=== PATIENT | female | born 1960 | race African-American/Black ===

== ENCOUNTER 2017-01-30 18:23 | Inpatient (IN) | payer OTHER ==
[~2017-01-30] VITALS: Ht 167.6 cm; Wt 43.5 kg
[2017-01-30] MEDS ORDERED: 0.9 % SODIUM CHLORIDE 10 ML DISP.SYRIN. IV PRN (18:45)
[2017-01-30] MEDS ORDERED: IV NORMAL SALINE 1000ML BAG 1,000 ML IV SCH (18:45)
--- NOTE | 2017-01-30 18:52 | PHYS DOC ---
Past Medical History Additional Past Medical Histor: Alzheimer's dementia Past Surgical History: Hysterectomy Alcohol Use: None Drug Use: None Adult General Chief Complaint Chief Complaint: WEAKNESS/GENERALIZED HPI VIGNESH Is is a pleasant 57-year-old -[place] female with a history of advanced also has dementia who lives at home with her and her [id number]. She normally can ambulate with assistance and follow simple instructions at home she does help with transferring from bed to chair she is able to feed herself at times. Family noted this morning the patient was refusing to help walk or transfer from her bed. They noticed increasing weakness or lower extremity's bilaterally and her refusal to walk. He denies any fevers at of the document, no change in bowel habits, no change in eating habits, no change in medications. They deny trauma or falls. She is not had any change in urinary output. Patient typically does not any complaints but has difficulty following most instructions. Family is primary concern is his increased weakness may be associated with a stroke. It is unclear when the symptoms began as she woke this morning with the symptoms. She clearly is not a candidate for TPA given the timetable Dr. Zan Martin is her PCP Review of Systems Review of Systems Patient was able to provide no history or review of systems review of systems provided below is from family. Constitutional: Denies fever or chills [] Eyes: Denies change in visual acuity, redness, or eye pain [] HENT: Denies nasal congestion or sore throat [] Respiratory: Denies cough or shortness of breath [] Cardiovascular: No additional information not addressed in HPI [] GI: Denies abdominal pain, nausea, vomiting, bloody stools or diarrhea [] : Denies dysuria or hematuria [] Musculoskeletal: Denies back pain or joint pain [] Integument: Denies rash or skin lesions [] Neurologic: Denies headache, patient is an increased weakness of the lower extremities with refusal walk. Endocrine: Denies polyuria or polydipsia [] Current Medications Current Medications Current Medications Medications (Trade) Dose Ordered Sig/Latasha Start Time Stop Time Status Last Admin Dose Admin Sodium Chloride (Normal Saline Flush) 10 ml QSHIFT PRN 01/30/17 18:45 01/30/17 19:30 10 ML Allergies Allergies Allergies Coded Allergies Type Severity Reaction Last Updated Verified No Known Drug Allergies 01/30/17 No Physical Exam Physical Exam This patient's vital signs reviewed by me patient noted to be mildly hypertensive. Constitutional: As patient is thin but well-nourished well cared for by the family she is actively leading to the right of the bed with active drooling. HENT: Normocephalic, atraumatic, bilateral external ears normal, oropharynx moist, no oral exudates, nose normal. [] Eyes: PERRLA, EOMI, conjunctiva normal, no discharge. [] Neck: Normal range of motion, no tenderness, supple, no stridor. [] Cardiovascular:Heart rate regular rhythm, no murmur [] Lungs & Thorax: Bilateral breath sounds clear to auscultation [] Abdomen: Bowel sounds normal, soft, no tenderness, no masses, no pulsatile masses. [] Skin: Warm, dry, no erythema, no rash. [] Back: No obvious signs of trauma Extremities: No tenderness, no cyanosis, no clubbing, ROM intact, no edema. [] Neurologic: Patient is awake and alert at baseline patient moves upper and lower extremity's with stimulation. Psychologic: Affect is blunted she will not communicate Current Patient Data Vital Signs Vital Signs Date Time Temp Pulse Resp B/P (MAP) Pulse Ox O2 Delivery O2 Flow Rate FiO2 01/30/17 18:40 97.9 60 16 143/67 (92) 98 Room Air 97.9 Lab Values Laboratory Tests Test 01/30/17 18:55 01/30/17 20:20 White Blood Count 10.9 x10^3/uL (4.0-11.0) Red Blood Count 3.89 x10^6/uL (3.50-5.40) Hemoglobin 11.5 g/dL (12.0-15.5) L Hematocrit 35.3 % (36.0-47.0) L Mean Corpuscular Volume 91 fL (79-100) Mean Corpuscular Hemoglobin 30 pg (25-35) Mean Corpuscular Hemoglobin Concent 33 g/dL (31-37) Red Cell Distribution Width 13.0 % (11.5-14.5) Platelet Count 187 x10^3/uL (140-400) Neutrophils (%) (Auto) 82 % (31-73) H Lymphocytes (%) (Auto) 7 % (24-48) L Monocytes (%) (Auto) 10 % (0-9) H Eosinophils (%) (Auto) 0 % (0-3) Basophils (%) (Auto) 0 % (0-3) Neutrophils # (Auto) 9.0 x10^3uL (1.8-7.7) H Lymphocytes # (Auto) 0.8 x10^3/uL (1.0-4.8) L Monocytes # (Auto) 1.1 x10^3/uL (0.0-1.1) Eosinophils # (Auto) 0.0 x10^3/uL (0.0-0.7) Basophils # (Auto) 0.0 x10^3/uL (0.0-0.2) Sodium Level 143 mmol/L (136-145) Potassium Level 3.8 mmol/L (3.5-5.1) Chloride Level 106 mmol/L (98-107) Carbon Dioxide Level 27 mmol/L (21-32) Anion Gap 10 (6-14) Blood Urea Nitrogen 16 mg/dL (7-20) Creatinine 0.9 mg/dL (0.6-1.0) Estimated GFR (Cockcroft-Gault) 77.8 Glucose Level 127 mg/dL (70-99) H Lactic Acid Level 1.6 mmol/L (0.4-2.0) Calcium Level 9.4 mg/dL (8.5-10.1) Magnesium Level 1.9 mg/dL (1.8-2.4) Total Bilirubin 0.9 mg/dL (0.2-1.0) Direct Bilirubin 0.2 mg/dL (0.0-0.2) Aspartate Amino Transferase (AST) 32 U/L (15-37) Alanine Aminotransferase (ALT) 27 U/L (14-59) Alkaline Phosphatase 44 U/L (46-116) L Creatine Kinase 608 U/L (26-192) H Creatine Kinase MB (Mass) 11.0 ng/mL (0.0-3.6) H Creatine Kinase MB Relative Index 1.8 % (0-4) Troponin I Quantitative < 0.017 ng/mL (0.000-0.055) SL-Wgc-W-Type Natriuretic Peptide 624 pg/mL (0-124) H Total Protein 7.7 g/dL (6.4-8.2) Albumin 3.5 g/dL (3.4-5.0) Lipase 89 U/L (73-393) Thyroid Stimulating Hormone (TSH) 1.638 uIU/mL (0.358-3.74) Urine Collection Type U cath Urine Color Kathy Urine Clarity Clear Urine pH 5.5 Urine Specific [place] >=1.030 Urine Protein Negative mg/dL (NEG-TRACE) Urine Glucose (UA) Negative mg/dL (NEG) Urine Ketones (Stick) Negative mg/dL (NEG) Urine Blood Negative (NEG) Urine Nitrite Negative (NEG) Urine Bilirubin Small (NEG) Urine Urobilinogen Dipstick 1.0 mg/dL (0.2 mg/dL) Urine Leukocyte Esterase Negative (NEG) Urine RBC Occ /HPF (0-2) Urine WBC Occ /HPF (0-4) Urine Bacteria 0 /HPF (0-FEW) Urine Mucus Marked /LPF Laboratory Tests 01/30/17 18:55 Laboratory Tests 01/30/17 18:55 EKG EKG [] Radiology/Procedures Radiology/Procedures [] IMAGING REPORT Signed PATIENT: KERLINE ZIMMERMAN ACCOUNT: [id number] : 1960 LOCATION: ER AGE: 57 SEX: F EXAM STATUS: REG ER ORD. PHYSICIAN: DEBORAH STERN MD REASON: altered mental status PROCEDURE: CT HEAD WO CONTRAST CT Head W/O Contrast: History: ams, no priors Comparison: none Axial images were obtained without contrast. There is marked diffuse atrophy. There is no mass effect, extraaxial fluid collections or hydrocephalus. There is no focal loss of brown-white matter distinction to suggest acute ischemia, i.e. stroke. Impression: Marked diffuse cerebral and cerebellar atrophy is advanced for the patient's age. Otherwise no acute findings. PQRS Compliance Statement: One or more of the following individualized dose reduction techniques were utilized for this examination: 1. Automated exposure control 2. Adjustment of the mA and/or kV according to patient size 3. Use of iterative reconstruction technique Electronically signed by: Jose Mg III, MD (01/30/2017 7:34 PM) [facility] DICTATED and SIGNED BY: JOSE MG III, MD DATE: 01/30/171922 CC: DEBORAH STERN MD; ZAN MARTIN MD ~ Impressions: CPK chest x-ray demonstrates normal inflated lungs with no infiltrates, no pleural effusion, no pneumothorax, Course & Med Decision Making Course & Med Decision Making Pertinent Labs and Imaging studies reviewed. (See chart for details) Patient presents with increased altered mental status as also missed patient. Which may just be an increase of alzhemiers dementia. But family is worried she might have suffered a stroke or some other catastrophe that is causing her altered mental status. Upon arrival to ensure the patient is not septic, from any pulmonary or urinary source. We will complete a CAT scan of her head EKG, troponin, CMP, BNP, CBC and urinalysis. Impression symptoms have not changed although her CMP is unremarkable. She has a mildly elevated CK but the MB and troponin are both negative. Patient is a mildly elevated BNP but no obvious signs of congestive heart failure on physical exam. Recent EKG is also unremarkable for any Acute coronary ischemia. CAT scan of her head completed and read by radiology and reviewed by me at approximately 8:10 PM demonstrates no acute infarct or cranial mass or lesion. I have expressed my concerns that there may be a urinary source of infection causing her increased weakness. We'll need to collect a catheter UA. [] Dragon Disclaimer Dragon Disclaimer This electronic medical record was generated, in whole or in part, using a voice recognition dictation system. Departure Departure Impression: Primary Impression: Generalized weakness Additional Impressions: Change in mental status Alzheimer's dementia Disposition: ADMITTED INPATIENT Admitting Physician: Neelima Cazares Condition: GUARDED Referrals: ZAN MARTIN MD (PCP) Problem Qualifiers DEBORAH STERN MD Jan 30, 2017 18:52
[2017-01-30 19:05] LABS: BASO % 0 % (0-3); EOS % 0 % (0-3); HEMATOCRIT 35.3 % (36.0-47.0); HEMOGLOBIN 11.5 g/dL (12.0-15.5); LYMPH # 0.8 x10^3/uL (1.0-4.8); LYMPH % 7 % (24-48); MEAN CORPUSCULAR HEMOGLOBIN 30 pg (25-35); MEAN CORPUSCULAR HGB CONC 33 g/dL (31-37); MEAN CORPUSCULAR VOLUME 91 fL (79-100); MONO % 10 % (0-9); NEUT % 82 % (31-73); PLATELET COUNT 187 x10^3/uL (140-400); RED BLOOD COUNT 3.89 x10^6/uL (3.50-5.40); WHITE BLOOD COUNT 10.9 x10^3/uL (4.0-11.0)
[2017-01-30 19:21] LABS: CALCIUM 9.4 mg/dL (8.5-10.1); CREATININE 0.9 mg/dL (0.6-1.0); GFR 77.8; POTASSIUM 3.8 mmol/L (3.5-5.1)
[2017-01-30 19:27] LABS: ALBUMIN 3.5 g/dL (3.4-5.0); DIRECT BILIRUBIN 0.2 mg/dL (0.0-0.2); MAGNESIUM 1.9 mg/dL (1.8-2.4); TOTAL BILIRUBIN 0.9 mg/dL (0.2-1.0); TOTAL PROTEIN 7.7 g/dL (6.4-8.2)
--- NOTE | 2017-01-30 19:37 | RAD ---
CT Head W/O Contrast: History: ams, no priors Comparison: none Axial images were obtained without contrast. There is marked diffuse atrophy. There is no mass effect, extraaxial fluid collections or hydrocephalus. There is no focal loss of brown-white matter distinction to suggest acute ischemia, i.e. stroke. Impression: Marked diffuse cerebral and cerebellar atrophy is advanced for the patient's age. Otherwise no acute findings. PQRS Compliance Statement: One or more of the following individualized dose reduction techniques were utilized for this examination: 1. Automated exposure control 2. Adjustment of the mA and/or kV according to patient size 3. Use of iterative reconstruction technique Electronically signed by: Sumit Spaulding III, MD (01/30/2017 7:34 PM) [facility]
[2017-01-30 20:31] LABS: BILIRUBIN,URINE SMALL (NEG); GLUCOSE,URINE NEGATIVE (NEG); NITRITE,URINE NEGATIVE (NEG); PH,URINE 5.5; PROTEIN,URINE NEGATIVE (NEG-TRACE)
[2017-01-30 20:35] LABS: BACTERIA,URINE 0 /HPF (0-FEW); RBC,URINE OCC /HPF (0-2); WBC,URINE OCC /HPF (0-4)
[2017-01-30] MEDS: IV NORMAL SALINE 1000ML BAG 1,000 ML IV SCH (21:15)
[2017-01-30] MEDS ORDERED: oxyCODONE IR 5 MG TABLET PO PRN (21:15)
[2017-01-30] MEDS ORDERED: MAGNESIUM HYDROXIDE 2,400 MG/30 ML ORAL.SUSP. PO PRN (21:15)
[2017-01-30] MEDS ORDERED: BISACODYL 10 MG SUPP.RECT. PR PRN (21:15)
[2017-01-30] MEDS ORDERED: ONDANSETRON PF 4 MG/2 ML VIAL. IV PRN (21:15)
[2017-01-30] MEDS ORDERED: IBUPROFEN 400 MG TABLET. PO PRN (21:15)
[2017-01-30] MEDS ORDERED: ACETAMINOPHEN 325 MG TABLET. PO PRN (21:15)
[2017-01-30] MEDS ORDERED: PROCHLORPERAZINE 10 MG/2 ML VIAL. IV PRN (21:15)
[2017-01-30] MEDS ORDERED: PROCHLORPERAZINE 25 MG SUPP.RECT. PR PRN (21:15)
[2017-01-30] MEDS ORDERED: MORPHINE SULFATE 2 MG/ML DISP.SYRIN. IV PRN (21:15)
[2017-01-30] MEDS ORDERED: KETOROLAC 15 MG/ML VIAL. IV PRN (21:15)
--- NOTE | 2017-01-30 21:25 | PDOC1 ---
History and Physical Date of Admission Date of Admission DATE: 01/30/17 TIME: 21:16 Identification/Chief Complaint Chief Complaint dec PO, not wanting to eat, get up, FTT sxs Problems: Source Source: Caregiver, Chart review History of Present Illness History of Present Illness 57 y.o AA female with already advanced dementia, dx with ALZHEIMERS dementia by a neurologist in 10 yrs ago and is on namenda, aricept, brought in by today for the above CC. (I have reviewed notes from this neurologist that the brought with him). There is always someone with patient to take care of her, at night the takes care of her after coming home from work, She does not really walk,, no bed sores, on regular chopped food they prepare and she picks it up for herself, . She mumbles mostly but can still recognize , PEr spouse worse today in mentation, drooling more and just refused to eat and get up which is a change from her baseline, I did discuss code status, and it is clear the says FULL Code and he is the DPOA. LAbs ok, CThead chronic vessel change, Admitted for mRI and possible placement, I did discuss SNU, seems a bit hesitant at first, but is willing to see her course and make appropriate decisions from there, Past Medical History Cardiovascular: HTN CENTRAL NERVOUS SYSTEM: Dementia Endocrine: Hypothyroidism Past Surgical History Past Surgical History: , Hysterectomy Family History Family History: Other (no dementia in family, reveiwed, neg) Social History Smoke: No ALCOHOL: none Drugs: None Current Problem List Problem List Problems Medical Problems: (1) Alzheimer's dementia Status: Acute (2) Change in mental status Status: Acute (3) Generalized weakness Status: Acute Problems: Current Medications Current Medications Current Medications Sodium Chloride 1,000 ml @ 1,000 mls/hr Q1H IV Last administered on 01/30/17 19:30; Start 01/30/17 at 18:45; Stop 01/30/17 at 19:44; Status DC Sodium Chloride (Normal Saline Flush) 10 ml QSHIFT PRN IV AFTER MEDS AND BLOOD DRAWS Last administered on 01/30/17 19:30; Start 01/30/17 at 18:45 Allergies Allergies: Coded Allergies: No Known Drug Allergies (Unverified , 01/30/17) ROS Review of System unobtainable - dementia Physical Exam General: No acute distress, Other (mumbles, seems to have shallow R NLF) HEENT: Atraumatic, PERRLA, EOMI Lungs: Clear to auscultation Heart: S1S2, no gallops Cardiovascular: S1 Breasts: Normal, Rt breast nml w/o mass, Lt breast nml w/o mass, Nipples normal Abdomen: Normal bowel sounds, Soft, No tenderness Male Genitals Exam: normal genitalia, normal prostate Rectal Exam: not examined PELVIC: Nml ext genitalia Extremities: Other (cant elevate both arms - thats her baseline per hsuband - mostly from dementia) Skin: No rashes, No breakdown, No significant lesion Vitals Vitals Vital Signs Date Time Temp Pulse Resp B/P (MAP) Pulse Ox O2 Delivery O2 Flow Rate FiO2 01/30/17 20:55 64 21 128/82 (97) 96 01/30/17 19:30 Room Air 01/30/17 18:40 97.9 97.9 Labs Labs Laboratory Tests Test 01/30/17 18:55 01/30/17 20:20 White Blood Count 10.9 x10^3/uL (4.0-11.0) Red Blood Count 3.89 x10^6/uL (3.50-5.40) Hemoglobin 11.5 g/dL (12.0-15.5) Hematocrit 35.3 % (36.0-47.0) Mean Corpuscular Volume 91 fL (79-100) Mean Corpuscular Hemoglobin 30 pg (25-35) Mean Corpuscular Hemoglobin Concent 33 g/dL (31-37) Red Cell Distribution Width 13.0 % (11.5-14.5) Platelet Count 187 x10^3/uL (140-400) Neutrophils (%) (Auto) 82 % (31-73) Lymphocytes (%) (Auto) 7 % (24-48) Monocytes (%) (Auto) 10 % (0-9) Eosinophils (%) (Auto) 0 % (0-3) Basophils (%) (Auto) 0 % (0-3) Neutrophils # (Auto) 9.0 x10^3uL (1.8-7.7) Lymphocytes # (Auto) 0.8 x10^3/uL (1.0-4.8) Monocytes # (Auto) 1.1 x10^3/uL (0.0-1.1) Eosinophils # (Auto) 0.0 x10^3/uL (0.0-0.7) Basophils # (Auto) 0.0 x10^3/uL (0.0-0.2) Sodium Level 143 mmol/L (136-145) Potassium Level 3.8 mmol/L (3.5-5.1) Chloride Level 106 mmol/L (98-107) Carbon Dioxide Level 27 mmol/L (21-32) Anion Gap 10 (6-14) Blood Urea Nitrogen 16 mg/dL (7-20) Creatinine 0.9 mg/dL (0.6-1.0) Estimated GFR (Cockcroft-Gault) 77.8 Glucose Level 127 mg/dL (70-99) Lactic Acid Level 1.6 mmol/L (0.4-2.0) Calcium Level 9.4 mg/dL (8.5-10.1) Magnesium Level 1.9 mg/dL (1.8-2.4) Total Bilirubin 0.9 mg/dL (0.2-1.0) Direct Bilirubin 0.2 mg/dL (0.0-0.2) Aspartate Amino Transf (AST/SGOT) 32 U/L (15-37) Alanine Aminotransferase (ALT/SGPT) 27 U/L (14-59) Alkaline Phosphatase 44 U/L (46-116) Creatine Kinase 608 U/L (26-192) Creatine Kinase MB (Mass) 11.0 ng/mL (0.0-3.6) Creatine Kinase MB Relative Index 1.8 % (0-4) Troponin I Quantitative < 0.017 ng/mL (0.000-0.055) ZH-Bqf-T-Type Natriuretic Peptide 624 pg/mL (0-124) Total Protein 7.7 g/dL (6.4-8.2) Albumin 3.5 g/dL (3.4-5.0) Lipase 89 U/L (73-393) Thyroid Stimulating Hormone (TSH) 1.638 uIU/mL (0.358-3.74) Urine Collection Type U cath Urine Color Kathy Urine Clarity Clear Urine pH 5.5 Urine Specific [place] >=1.030 Urine Protein Negative mg/dL (NEG-TRACE) Urine Glucose (UA) Negative mg/dL (NEG) Urine Ketones (Stick) Negative mg/dL (NEG) Urine Blood Negative (NEG) Urine Nitrite Negative (NEG) Urine Bilirubin Small (NEG) Urine Urobilinogen Dipstick 1.0 mg/dL (0.2 mg/dL) Urine Leukocyte Esterase Negative (NEG) Urine RBC Occ /HPF (0-2) Urine WBC Occ /HPF (0-4) Urine Bacteria 0 /HPF (0-FEW) Urine Mucus Marked /LPF Laboratory Tests Test 01/30/17 18:55 01/30/17 20:20 White Blood Count 10.9 x10^3/uL (4.0-11.0) Red Blood Count 3.89 x10^6/uL (3.50-5.40) Hemoglobin 11.5 g/dL (12.0-15.5) Hematocrit 35.3 % (36.0-47.0) Mean Corpuscular Volume 91 fL (79-100) Mean Corpuscular Hemoglobin 30 pg (25-35) Mean Corpuscular Hemoglobin Concent 33 g/dL (31-37) Red Cell Distribution Width 13.0 % (11.5-14.5) Platelet Count 187 x10^3/uL (140-400) Neutrophils (%) (Auto) 82 % (31-73) Lymphocytes (%) (Auto) 7 % (24-48) Monocytes (%) (Auto) 10 % (0-9) Eosinophils (%) (Auto) 0 % (0-3) Basophils (%) (Auto) 0 % (0-3) Neutrophils # (Auto) 9.0 x10^3uL (1.8-7.7) Lymphocytes # (Auto) 0.8 x10^3/uL (1.0-4.8) Monocytes # (Auto) 1.1 x10^3/uL (0.0-1.1) Eosinophils # (Auto) 0.0 x10^3/uL (0.0-0.7) Basophils # (Auto) 0.0 x10^3/uL (0.0-0.2) Sodium Level 143 mmol/L (136-145) Potassium Level 3.8 mmol/L (3.5-5.1) Chloride Level 106 mmol/L (98-107) Carbon Dioxide Level 27 mmol/L (21-32) Anion Gap 10 (6-14) Blood Urea Nitrogen 16 mg/dL (7-20) Creatinine 0.9 mg/dL (0.6-1.0) Estimated GFR (Cockcroft-Gault) 77.8 Glucose Level 127 mg/dL (70-99) Lactic Acid Level 1.6 mmol/L (0.4-2.0) Calcium Level 9.4 mg/dL (8.5-10.1) Magnesium Level 1.9 mg/dL (1.8-2.4) Total Bilirubin 0.9 mg/dL (0.2-1.0) Direct Bilirubin 0.2 mg/dL (0.0-0.2) Aspartate Amino Transf (AST/SGOT) 32 U/L (15-37) Alanine Aminotransferase (ALT/SGPT) 27 U/L (14-59) Alkaline Phosphatase 44 U/L (46-116) Creatine Kinase 608 U/L (26-192) Creatine Kinase MB (Mass) 11.0 ng/mL (0.0-3.6) Creatine Kinase MB Relative Index 1.8 % (0-4) Troponin I Quantitative < 0.017 ng/mL (0.000-0.055) ER-Lyy-N-Type Natriuretic Peptide 624 pg/mL (0-124) Total Protein 7.7 g/dL (6.4-8.2) Albumin 3.5 g/dL (3.4-5.0) Lipase 89 U/L (73-393) Thyroid Stimulating Hormone (TSH) 1.638 uIU/mL (0.358-3.74) Urine Collection Type U cath Urine Color Kathy Urine Clarity Clear Urine pH 5.5 Urine Specific [place] >=1.030 Urine Protein Negative mg/dL (NEG-TRACE) Urine Glucose (UA) Negative mg/dL (NEG) Urine Ketones (Stick) Negative mg/dL (NEG) Urine Blood Negative (NEG) Urine Nitrite Negative (NEG) Urine Bilirubin Small (NEG) Urine Urobilinogen Dipstick 1.0 mg/dL (0.2 mg/dL) Urine Leukocyte Esterase Negative (NEG) Urine RBC Occ /HPF (0-2) Urine WBC Occ /HPF (0-4) Urine Bacteria 0 /HPF (0-FEW) Urine Mucus Marked /LPF VTE Prophylaxis Ordered VTE Prophylaxis Devices: Yes VTE Pharmacological Prophylaxi: Yes Assessment/Plan Assessment/Plan 1. SEVERELY ADVANCED ALZHEIMER'S DEMENTIA, at a young age dx 10 yrs ago maintained on meds 2. AOCD 3. FTT sxs 4. BEd bound/limited mobility 5. MOd PCM 6. Full code 7. Hypothy on synthroid Plan: ADmit 2 MN NPO till WAREHOUSE OPERATIONS MANAGER PT/OT IVF while NPO Sw SNU screen DVT prophy PPI while NPO Resume home meds once WAREHOUSE OPERATIONS MANAGER clears Check TSH - on synthoid at home COnsult neuro MIght need alzheimers placement Dw ,seen at ER FULL CODE CRISTOPHER JONES MD Jan 30, 2017 21:25
[2017-01-30] MEDS: ENOXAPARIN 40 MG/0.4 ML SYRINGE. SQ SCH (21:53)
[2017-01-30 23:00] VITALS: BP 115/73
[2017-01-30] MEDS ORDERED: RISP0.5T3 PO (23:29)
[2017-01-30] MEDS ORDERED: MEMA10TA PO (23:29)
[2017-01-30] MEDS ORDERED: DONE10TA61 PO (23:29)
[2017-01-30] MEDS ORDERED: CITA10TA4 PO (23:29)
[2017-01-31] MEDS: IV 1/2 NORMAL SALINE 1,000 ML IV SCH ×3 (00:23→23:56)
--- NOTE | 2017-01-31 01:14 | ACF ---
Admission Forms Criteria MENTAL STATUS CHANGE Clinical Indications for Inpatient Care (Place 'X' for any and all applicable criteria): Ongoing inpatient care may be needed for 1 or more of the following(1)(2)(3)(5)( 6): [X]I. Suspected serious etiology (eg, medical disorder, MIRROR MACHINE FEEDER event) of altered mental status [ ]II. Danger to self or others not manageable at lower level of care [ ]III. Grave disability (eg, inability to perform self care necessary at lower level of care) [ ]IV. Agitation or inappropriate behavior interfering with care for primary condition (eg, attempting to discontinue lines or drains prematurely, unable to cooperate with respiratory care) [ ]V. Delirium [A] [D][E] as described by 1 or more of the following(26): [ ]a) Delirium due to alcohol or sedative [F] withdrawal [ ]b) Delirium of uncertain etiology that has not responded to appropriate empiric treatment [ ]c) Delirium that prevents performance of a life-sustaining function (eg, feeding or hydrating oneself) [ ]. General contraindications and/or Inappropriate clinical situations for Observational Care in patients with Mental Status Change, when ANY ONE of the following is required: [ ]a) Prediction of prolongation of LOS based on ANY ONE of the following may be considered as a contraindication for observational care 2, 3, 4, 5, 6, 7, 8, 9, 10, 11 [ ]i) Age > 65 yrs. [ ]ii) Patient arriving by ambulance [ ]iii) Patient with high acuity [ ]iv) Patient requiring vital sign monitoring [ ]v) Patient on IV medication [ ]b) Systolic blood pressures greater than or equal to 180mmHg 3, 12 [ ]c) Patient with altered mental status including delirium and other alteration of consciousness, (3) [ ]d) Patient whose discharge disposition will be to a longterm home or rehabilitation home should not be managed in Emergency Department Observation Unit. CMS rule requires 3 days hospital stay before such placement.3,13 [ ]e) Patient with failure to thrive due to broad array of etiologies 3,16,17 [ ]f) Inability to ambulate 3,14 Extended stay beyond goal length of stay for the primary condition may be needed until ALL of the following are present(3)(5): [ ]a) Underlying medical etiology of mental status change is absent, or has been established and adequately treated [ ]b) Danger to self or others is absent or manageable at lower level of care. [ ]c) Behavior crisis management, including physical or chemical restraints, is not required or available at lower level of car [ ]d) Substance or alcohol withdrawal is absent or manageable at lower level of care. [ ]e) Behavioral symptoms (eg, agitation, somnolence, inappropriate behavior) are absent, or are manageable at lower level of care. The original [facility] content created by [facility] has been revised. The portions of the content which have been revised are identified through the use of italic text or in bold, and [facility] has neither reviewed nor approved the modified material. All other unmodified content is copyright [facility]. Please see references footnoted in the original [facility] edition 2016 Admission Criteria Met?: Yes BREANNE CHASE Jan 31, 2017 01:14
[2017-01-31 03:10] VITALS: BP 115/75
[2017-01-31 07:00] VITALS: BP 115/79
[2017-01-31] MEDS: IV NORMAL SALINE 1000ML BAG 1,000 ML IV SCH ×2 (07:15→17:15)
--- NOTE | 2017-01-31 08:04 | RAD ---
Indication change in mental status. Protocol study. A single view of the chest was obtained. No prior imaging of the chest is available. The heart and pulmonary vessels appear normal. The lungs are clear. There is no pleural fluid or pneumothorax. The visualized bony structures appear grossly intact. IMPRESSION: No acute or focal process seen in the chest
[2017-01-31] MEDS: DOCUSATE SODIUM 100 MG CAPSULE. PO SCH ×2 (09:00→22:11)
--- NOTE | 2017-01-31 10:06 | EKG ---
[facility] [address] [place] [address] Test Date: 2017-01-31 Test Time: 09:15:16 Pat Name: KERLINE ZIMMERMAN Department: Room: 202 1 Gender: F [employer]: : 1960 Requested By: CRISTOPHER JONES Order Number: [id number] Reading MD: Measurements Intervals [place] Rate: 70 P: 73 [place]: 132 QRS: 80 QRSD: 86 T: 59 QT: 390 QTc: 424 Interpretive Statements SINUS RHYTHM T ABNORMALITY IN ANTERIOR LEADS ABNORMAL ECG RI6.01 No previous ECG available for comparison
[2017-01-31 11:00] VITALS: BP 108/78
--- NOTE | 2017-01-31 13:13 | PDOC ---
PROGRESS NOTES Chief Complaint Chief Complaint 1. SEVERELY ADVANCED ALZHEIMER'S DEMENTIA, at a young age dx 10 yrs ago maintained on meds 2. AOCD 3. mild rhabdo 4. BEd bound/limited mobility 5. MOd PCM 6. Full code 7. Hypothy on synthroid? no home meds for it plan: fu with neuro Brain MRI pending diet if passed swallow eval decrease ivf ptot dvt ppx repeat CKMB, TROponin, check vitb12, vitd likely this is fluctuating severe dementia. History of Present Illness History of Present Illness arousable, not answer question or follow commands. calm, but very confused Vitals Vitals Vital Signs Date Time Temp Pulse Resp B/P (MAP) Pulse Ox O2 Delivery O2 Flow Rate FiO2 01/31/17 11:00 98.8 69 17 108/78 (88) 99 Room Air 98.8 Physical Exam General: Alert, No acute distress, Other (mumbles, seems to have shallow R NLF) Heart: Regular rate, Normal S1, Normal S2 Lungs: Clear Abdomen: Normal bowel sounds, Soft, No tenderness Extremities: Other (cant elevate both arms - thats her baseline per hsuband - mostly from dementia) Skin: No rashes, No breakdown, No significant lesion Labs LABS Laboratory Tests Test 01/30/17 18:55 01/30/17 20:20 White Blood Count 10.9 x10^3/uL (4.0-11.0) Red Blood Count 3.89 x10^6/uL (3.50-5.40) Hemoglobin 11.5 g/dL (12.0-15.5) Hematocrit 35.3 % (36.0-47.0) Mean Corpuscular Volume 91 fL (79-100) Mean Corpuscular Hemoglobin 30 pg (25-35) Mean Corpuscular Hemoglobin Concent 33 g/dL (31-37) Red Cell Distribution Width 13.0 % (11.5-14.5) Platelet Count 187 x10^3/uL (140-400) Neutrophils (%) (Auto) 82 % (31-73) Lymphocytes (%) (Auto) 7 % (24-48) Monocytes (%) (Auto) 10 % (0-9) Eosinophils (%) (Auto) 0 % (0-3) Basophils (%) (Auto) 0 % (0-3) Neutrophils # (Auto) 9.0 x10^3uL (1.8-7.7) Lymphocytes # (Auto) 0.8 x10^3/uL (1.0-4.8) Monocytes # (Auto) 1.1 x10^3/uL (0.0-1.1) Eosinophils # (Auto) 0.0 x10^3/uL (0.0-0.7) Basophils # (Auto) 0.0 x10^3/uL (0.0-0.2) Sodium Level 143 mmol/L (136-145) Potassium Level 3.8 mmol/L (3.5-5.1) Chloride Level 106 mmol/L (98-107) Carbon Dioxide Level 27 mmol/L (21-32) Anion Gap 10 (6-14) Blood Urea Nitrogen 16 mg/dL (7-20) Creatinine 0.9 mg/dL (0.6-1.0) Estimated GFR (Cockcroft-Gault) 77.8 Glucose Level 127 mg/dL (70-99) Lactic Acid Level 1.6 mmol/L (0.4-2.0) Calcium Level 9.4 mg/dL (8.5-10.1) Magnesium Level 1.9 mg/dL (1.8-2.4) Total Bilirubin 0.9 mg/dL (0.2-1.0) Direct Bilirubin 0.2 mg/dL (0.0-0.2) Aspartate Amino Transf (AST/SGOT) 32 U/L (15-37) Alanine Aminotransferase (ALT/SGPT) 27 U/L (14-59) Alkaline Phosphatase 44 U/L (46-116) Creatine Kinase 608 U/L (26-192) Creatine Kinase MB (Mass) 11.0 ng/mL (0.0-3.6) Creatine Kinase MB Relative Index 1.8 % (0-4) Troponin I Quantitative < 0.017 ng/mL (0.000-0.055) YB-Mtd-S-Type Natriuretic Peptide 624 pg/mL (0-124) Total Protein 7.7 g/dL (6.4-8.2) Albumin 3.5 g/dL (3.4-5.0) Lipase 89 U/L (73-393) Thyroid Stimulating Hormone (TSH) 1.638 uIU/mL (0.358-3.74) Urine Collection Type U cath Urine Color Kathy Urine Clarity Clear Urine pH 5.5 Urine Specific [place] >=1.030 Urine Protein Negative mg/dL (NEG-TRACE) Urine Glucose (UA) Negative mg/dL (NEG) Urine Ketones (Stick) Negative mg/dL (NEG) Urine Blood Negative (NEG) Urine Nitrite Negative (NEG) Urine Bilirubin Small (NEG) Urine Urobilinogen Dipstick 1.0 mg/dL (0.2 mg/dL) Urine Leukocyte Esterase Negative (NEG) Urine RBC Occ /HPF (0-2) Urine WBC Occ /HPF (0-4) Urine Bacteria 0 /HPF (0-FEW) Urine Mucus Marked /LPF Review of Systems Review of Systems no fever, chills, sob or chest pain Assessment and Plan Assessmemt and Plan Problems Medical Problems: (1) Alzheimer's dementia Status: Acute (2) Change in mental status Status: Acute (3) Generalized weakness Status: Acute Problems: Comment Review of Relevant I have reviewed the following items jamar (where applicable) has been applied. Labs Laboratory Tests Test 01/30/17 18:55 01/30/17 20:20 White Blood Count 10.9 x10^3/uL (4.0-11.0) Red Blood Count 3.89 x10^6/uL (3.50-5.40) Hemoglobin 11.5 g/dL (12.0-15.5) Hematocrit 35.3 % (36.0-47.0) Mean Corpuscular Volume 91 fL (79-100) Mean Corpuscular Hemoglobin 30 pg (25-35) Mean Corpuscular Hemoglobin Concent 33 g/dL (31-37) Red Cell Distribution Width 13.0 % (11.5-14.5) Platelet Count 187 x10^3/uL (140-400) Neutrophils (%) (Auto) 82 % (31-73) Lymphocytes (%) (Auto) 7 % (24-48) Monocytes (%) (Auto) 10 % (0-9) Eosinophils (%) (Auto) 0 % (0-3) Basophils (%) (Auto) 0 % (0-3) Neutrophils # (Auto) 9.0 x10^3uL (1.8-7.7) Lymphocytes # (Auto) 0.8 x10^3/uL (1.0-4.8) Monocytes # (Auto) 1.1 x10^3/uL (0.0-1.1) Eosinophils # (Auto) 0.0 x10^3/uL (0.0-0.7) Basophils # (Auto) 0.0 x10^3/uL (0.0-0.2) Sodium Level 143 mmol/L (136-145) Potassium Level 3.8 mmol/L (3.5-5.1) Chloride Level 106 mmol/L (98-107) Carbon Dioxide Level 27 mmol/L (21-32) Anion Gap 10 (6-14) Blood Urea Nitrogen 16 mg/dL (7-20) Creatinine 0.9 mg/dL (0.6-1.0) Estimated GFR (Cockcroft-Gault) 77.8 Glucose Level 127 mg/dL (70-99) Lactic Acid Level 1.6 mmol/L (0.4-2.0) Calcium Level 9.4 mg/dL (8.5-10.1) Magnesium Level 1.9 mg/dL (1.8-2.4) Total Bilirubin 0.9 mg/dL (0.2-1.0) Direct Bilirubin 0.2 mg/dL (0.0-0.2) Aspartate Amino Transf (AST/SGOT) 32 U/L (15-37) Alanine Aminotransferase (ALT/SGPT) 27 U/L (14-59) Alkaline Phosphatase 44 U/L (46-116) Creatine Kinase 608 U/L (26-192) Creatine Kinase MB (Mass) 11.0 ng/mL (0.0-3.6) Creatine Kinase MB Relative Index 1.8 % (0-4) Troponin I Quantitative < 0.017 ng/mL (0.000-0.055) SJ-Utf-D-Type Natriuretic Peptide 624 pg/mL (0-124) Total Protein 7.7 g/dL (6.4-8.2) Albumin 3.5 g/dL (3.4-5.0) Lipase 89 U/L (73-393) Thyroid Stimulating Hormone (TSH) 1.638 uIU/mL (0.358-3.74) Urine Collection Type U cath Urine Color Kathy Urine Clarity Clear Urine pH 5.5 Urine Specific [place] >=1.030 Urine Protein Negative mg/dL (NEG-TRACE) Urine Glucose (UA) Negative mg/dL (NEG) Urine Ketones (Stick) Negative mg/dL (NEG) Urine Blood Negative (NEG) Urine Nitrite Negative (NEG) Urine Bilirubin Small (NEG) Urine Urobilinogen Dipstick 1.0 mg/dL (0.2 mg/dL) Urine Leukocyte Esterase Negative (NEG) Urine RBC Occ /HPF (0-2) Urine WBC Occ /HPF (0-4) Urine Bacteria 0 /HPF (0-FEW) Urine Mucus Marked /LPF Laboratory Tests Test 01/30/17 18:55 01/30/17 20:20 White Blood Count 10.9 x10^3/uL (4.0-11.0) Red Blood Count 3.89 x10^6/uL (3.50-5.40) Hemoglobin 11.5 g/dL (12.0-15.5) Hematocrit 35.3 % (36.0-47.0) Mean Corpuscular Volume 91 fL (79-100) Mean Corpuscular Hemoglobin 30 pg (25-35) Mean Corpuscular Hemoglobin Concent 33 g/dL (31-37) Red Cell Distribution Width 13.0 % (11.5-14.5) Platelet Count 187 x10^3/uL (140-400) Neutrophils (%) (Auto) 82 % (31-73) Lymphocytes (%) (Auto) 7 % (24-48) Monocytes (%) (Auto) 10 % (0-9) Eosinophils (%) (Auto) 0 % (0-3) Basophils (%) (Auto) 0 % (0-3) Neutrophils # (Auto) 9.0 x10^3uL (1.8-7.7) Lymphocytes # (Auto) 0.8 x10^3/uL (1.0-4.8) Monocytes # (Auto) 1.1 x10^3/uL (0.0-1.1) Eosinophils # (Auto) 0.0 x10^3/uL (0.0-0.7) Basophils # (Auto) 0.0 x10^3/uL (0.0-0.2) Sodium Level 143 mmol/L (136-145) Potassium Level 3.8 mmol/L (3.5-5.1) Chloride Level 106 mmol/L (98-107) Carbon Dioxide Level 27 mmol/L (21-32) Anion Gap 10 (6-14) Blood Urea Nitrogen 16 mg/dL (7-20) Creatinine 0.9 mg/dL (0.6-1.0) Estimated GFR (Cockcroft-Gault) 77.8 Glucose Level 127 mg/dL (70-99) Lactic Acid Level 1.6 mmol/L (0.4-2.0) Calcium Level 9.4 mg/dL (8.5-10.1) Magnesium Level 1.9 mg/dL (1.8-2.4) Total Bilirubin 0.9 mg/dL (0.2-1.0) Direct Bilirubin 0.2 mg/dL (0.0-0.2) Aspartate Amino Transf (AST/SGOT) 32 U/L (15-37) Alanine Aminotransferase (ALT/SGPT) 27 U/L (14-59) Alkaline Phosphatase 44 U/L (46-116) Creatine Kinase 608 U/L (26-192) Creatine Kinase MB (Mass) 11.0 ng/mL (0.0-3.6) Creatine Kinase MB Relative Index 1.8 % (0-4) Troponin I Quantitative < 0.017 ng/mL (0.000-0.055) RO-Fkf-M-Type Natriuretic Peptide 624 pg/mL (0-124) Total Protein 7.7 g/dL (6.4-8.2) Albumin 3.5 g/dL (3.4-5.0) Lipase 89 U/L (73-393) Thyroid Stimulating Hormone (TSH) 1.638 uIU/mL (0.358-3.74) Urine Collection Type U cath Urine Color Kathy Urine Clarity Clear Urine pH 5.5 Urine Specific [place] >=1.030 Urine Protein Negative mg/dL (NEG-TRACE) Urine Glucose (UA) Negative mg/dL (NEG) Urine Ketones (Stick) Negative mg/dL (NEG) Urine Blood Negative (NEG) Urine Nitrite Negative (NEG) Urine Bilirubin Small (NEG) Urine Urobilinogen Dipstick 1.0 mg/dL (0.2 mg/dL) Urine Leukocyte Esterase Negative (NEG) Urine RBC Occ /HPF (0-2) Urine WBC Occ /HPF (0-4) Urine Bacteria 0 /HPF (0-FEW) Urine Mucus Marked /LPF Medications Current Medications Sodium Chloride 1,000 ml @ 1,000 mls/hr Q1H IV Last administered on 01/30/17 19:30; Start 01/30/17 at 18:45; Stop 01/30/17 at 19:44; Status DC Sodium Chloride (Normal Saline Flush) 10 ml QSHIFT PRN IV AFTER MEDS AND BLOOD DRAWS Last administered on 01/30/17 19:30; Start 01/30/17 at 18:45 Sodium Chloride 1,000 ml @ 100 mls/hr Q10H IV Last administered on 01/31/17 07:15; Start 01/30/17 at 21:15 Ondansetron HCl (Zofran) 4 mg PRN Q6HRS PRN IV NAUSEA/VOMITING; Start 01/30/17 at 21:15 Prochlorperazine Edisylate (Compazine) 10 mg PRN Q6HRS PRN IV NAUSEA/VOMITING; Start 01/30/17 at 21:15 Prochlorperazine (Compazine) 25 mg PRN Q12HR PRN ND NAUSEA/VOMITING; Start at 21:15 Morphine Sulfate 1 mg PRN Q2HR PRN IV PAIN; Start 01/30/17 at 21:15 Oxycodone HCl (Roxicodone) 5 mg PRN Q4HRS PRN PO MILD PAIN, 1ST CHOICE; Start 01/30/17 at 21:15 Ketorolac Tromethamine (Toradol) 15 mg PRN Q6HRS PRN IV PAIN; Start 01/30/17 at 21:15; Stop 02/04/17 at 21:14 Acetaminophen (Tylenol) 650 mg PRN Q6HRS PRN PO Headaches, Temp > 101.5F; Start 01/30/17 at 21:15 Ibuprofen (Motrin) 400 mg PRN Q6HRS PRN PO MILD PAIN; Start 01/30/17 at 21:15; Stop 01/31/17 at 10:58; Status DC Docusate Sodium (Colace) 100 mg BID PO ; Start 01/31/17 at 09:00 Magnesium Hydroxide (Milk Of Magnesia) 2,400 mg PRN Q12HR PRN PO CONSTIPATION; Start 01/30/17 at 21:15 Bisacodyl (Dulcolax Supp) 10 mg PRN DAILY PRN ND CONSTIPATION; Start 01/30/17 at 21:15 Enoxaparin Sodium (Lovenox 40mg Syringe) 40 mg Q24H SQ Last administered on t 21:53; Start 01/30/17 at 21:30 Sodium Chloride 1,000 ml @ 100 mls/hr Q10H IV ; Start 01/30/17 at 21:15; Stop 01/31/17 at 21:14 Active Scripts Active Reported Citalopram Hbr (Citalopram Hydrobromide) 10 Mg Tablet 1 Tab PO DAILY Risperidone 0.5 Mg Tablet 0.25 Mg PO DAILY Aricept (Donepezil Hcl) 10 Mg Tablet 1 Tab PO DAILY Namenda (Memantine Hcl) 10 Mg Tablet 1 Tab PO BID Vitals/I & O Vital Sign - Last 24 Hours 01/30/17 01/30/17 01/30/17 01/30/17 18:40 19:30 20:25 20:55 Temp 97.9 97.9 Pulse 60 66 65 64 Resp 16 23 21 21 B/P (MAP) 143/67 (92) 133/82 (99) 126/82 (97) 128/82 (97) Pulse Ox 98 97 97 96 O2 Delivery Room Air Room Air 01/30/17 01/30/17 01/30/17 01/30/17 21:25 21:55 22:25 23:00 Temp 98.2 98.2 Pulse 65 64 70 67 Resp 21 21 20 18 B/P (MAP) 116/80 (92) 129/77 (94) 111/78 (89) 115/73 (87) Pulse Ox 98 100 99 98 O2 Delivery Room Air Room Air 01/30/17 01/31/17 01/31/17 01/31/17 23:00 01:23 03:10 07:00 Temp 98.2 98.0 98.8 98.2 98.0 98.8 Pulse 67 58 72 Resp 18 18 17 B/P (MAP) 115/73 (87) 115/75 (88) 115/79 (91) Pulse Ox 98 98 100 O2 Delivery Room Air Room Air Room Air Room Air 01/31/17 01/31/17 08:38 11:00 Temp 98.8 98.8 Pulse 69 Resp 17 B/P (MAP) 108/78 (88) Pulse Ox 99 O2 Delivery Room Air Room Air Intake and Output 01/30/17 01/30/17 01/31/17 15:00 23:00 07:00 Intake Total 0 ml Balance 0 ml MIAH SMITH MD Jan 31, 2017 13:13
[2017-01-31 15:00] VITALS: BP 122/76
[2017-01-31 15:07] LABS: CKMB MASS 1.6 ng/mL (0.0-3.6)
--- NOTE | 2017-01-31 17:10 | PDOC2 ---
NEUROLOGY CONSULT Date of Admission Date of Admission DATE: 01/31/17 TIME: 16:58 Reason for Consult Reason for Consult: IMPRESSION: Metabolic encephalopathy. Generalized weakness. Abnormal jerking movements. AD Cerebral atrophy. RECOMMENDATIONS/PLAN: EEG MRI w/wo contrast. Lab: see orders. Discussed with her at bedside. HISTORY OF THE PRESENT ILLNESS: 57-y-old female patient with Hs dementia for about 10 years. She was evaluated at [facility] and was thought as AD type of dementia and she has been followed up at [facility]. She was noted to have generalized weakness and unable to stand nor walk which she was able to do some, so she was brought to the ER of [facility]. Her HCT showed moderate to severe cerebral atrophy. PAST MEDICAL HISTORY: Please see above. PAST SURGERY HISTORY: Hysterectomy ALLERGY: Reviewed. MEDICATIONS: Refer to [facility] FAMILY HISTORY: No hx of dementia. SOCIAL HISTORY: Lives with her at home. Denies smoking, drinking, and illicit drug use. REVIEW OF SYSTEMS: Constitutional: No malnutrition or cachexia. Head: No traumatic brain or head injury. Skin: No edema, or rash. Ear: No infection, tinnitus. Eyes: No vision loss or color blindness. Nose: No bleeding or purulent discharges. Hearing: No hearing decrease. Neck: No injury. Breast: No history of cancer, masses,or discharges. Cardiac: No AR, arrhythmia.. Pulmonary: No COPD. GI: No GI ulcer, GI bleeding. Urinary/genital: No dysuria, hematuria. Endocrinologic: No cousin face, craniofacial dysmorphism, polydactyly, goiter. Skeletomuscular: Generalized weakness. Neurological: see HP. Psychiatric: Denies drug use/abuse. Otherwise, not -volcw review of systems. PHYSICAL EXAMINATION: General appearance is in subacute distress. HEENT: Normocephalic and nontraumatic. Eyes, nose, ears, and throat are unremarkable. Neck is supple. No lymphadenopathy. No crepitus. Cardiovascular: S1, S2, regular rate and rhythm. Pulmonary: Clear to auscultation bilaterally. Abdomen: Bowel sounds are positive. Extremities: No rash, lesions, or edema. No restriction of range of motion NEUROLOGICAL EXAMINATION: Awake. Unable to communicate. Not oriented to time and place but may know her . PERRL. EOMI. CN: no focal findings. Muscle tone: within normal. Muscle strength: 5- DTR: 2- Plantar reflex: Neutral response bilaterally Gait: not examined in bed. Sensory exam: no acute abnormal findings. No acute cerebellar signs elicited. F-T-N test not performed due to not follow commands. Abnormal shaking and jerking movements noted. Current Medications Current Medications Current Medications Sodium Chloride 1,000 ml @ 1,000 mls/hr Q1H IV Last administered on 01/30/17 19:30; Start 01/30/17 at 18:45; Stop 01/30/17 at 19:44; Status DC Sodium Chloride (Normal Saline Flush) 10 ml QSHIFT PRN IV AFTER MEDS AND BLOOD DRAWS Last administered on 01/30/17 19:30; Start 01/30/17 at 18:45 Sodium Chloride 1,000 ml @ 75 mls/hr [id number] IV Last administered on 07:15; Start 01/30/17 at 21:15 Ondansetron HCl (Zofran) 4 mg PRN Q6HRS PRN IV NAUSEA/VOMITING; Start 01/30/17 at 21:15 Prochlorperazine Edisylate (Compazine) 10 mg PRN Q6HRS PRN IV NAUSEA/VOMITING; Start 01/30/17 at 21:15 Prochlorperazine (Compazine) 25 mg PRN Q12HR PRN [place] NAUSEA/VOMITING; Start at 21:15 Morphine Sulfate 1 mg PRN Q2HR PRN IV PAIN; Start 01/30/17 at 21:15 Oxycodone HCl (Roxicodone) 5 mg PRN Q4HRS PRN PO MILD PAIN, 1ST CHOICE; Start 01/30/17 at 21:15 Ketorolac Tromethamine (Toradol) 15 mg PRN Q6HRS PRN IV PAIN; Start 01/30/17 at 21:15; Stop 02/04/17 at 21:14 Acetaminophen (Tylenol) 650 mg PRN Q6HRS PRN PO Headaches, Temp > 101.5F; Start 01/30/17 at 21:15 Ibuprofen (Motrin) 400 mg PRN Q6HRS PRN PO MILD PAIN; Start 01/30/17 at 21:15; Stop 01/31/17 at 10:58; Status DC Docusate Sodium (Colace) 100 mg BID PO ; Start 01/31/17 at 09:00 Magnesium Hydroxide (Milk Of Magnesia) 2,400 mg PRN Q12HR PRN PO CONSTIPATION; Start 01/30/17 at 21:15 Bisacodyl (Dulcolax Supp) 10 mg PRN DAILY PRN [place] CONSTIPATION; Start 01/30/17 at 21:15 Enoxaparin Sodium (Lovenox 40mg Syringe) 40 mg Q24H SQ Last administered on 21:53; Start 01/30/17 at 21:30 Sodium Chloride 1,000 ml @ 100 mls/hr Q10H IV ; Start 01/30/17 at 21:15; Stop 01/31/17 at 21:14 Lorazepam (Ativan) 0.5 mg 1X ONCE IV Last administered on 01/31/17 15:43; Start 01/31/17 at 15:45; Stop 01/31/17 at 15:46; Status DC Active Scripts Active Reported Citalopram Hbr (Citalopram Hydrobromide) 10 Mg Tablet 1 Tab PO DAILY Risperidone 0.5 Mg Tablet 0.25 Mg PO DAILY Aricept (Donepezil Hcl) 10 Mg Tablet 1 Tab PO DAILY Namenda (Memantine Hcl) 10 Mg Tablet 1 Tab PO BID Allergies Allergies: Coded Allergies: No Known Drug Allergies (Unverified , 01/30/17) Vitals VITALS Vital Signs Date Time Temp Pulse Resp B/P (MAP) Pulse Ox O2 Delivery O2 Flow Rate FiO2 01/31/17 15:00 98.6 78 17 122/76 (91) 99 Room Air 98.6 Labs Labs Laboratory Tests Test 01/30/17 18:55 01/30/17 20:20 01/31/17 14:25 White Blood Count 10.9 x10^3/uL (4.0-11.0) Red Blood Count 3.89 x10^6/uL (3.50-5.40) Hemoglobin 11.5 g/dL (12.0-15.5) Hematocrit 35.3 % (36.0-47.0) Mean Corpuscular Volume 91 fL (79-100) Mean Corpuscular Hemoglobin 30 pg (25-35) Mean Corpuscular Hemoglobin Concent 33 g/dL (31-37) Red Cell Distribution Width 13.0 % (11.5-14.5) Platelet Count 187 x10^3/uL (140-400) Neutrophils (%) (Auto) 82 % (31-73) Lymphocytes (%) (Auto) 7 % (24-48) Monocytes (%) (Auto) 10 % (0-9) Eosinophils (%) (Auto) 0 % (0-3) Basophils (%) (Auto) 0 % (0-3) Neutrophils # (Auto) 9.0 x10^3uL (1.8-7.7) Lymphocytes # (Auto) 0.8 x10^3/uL (1.0-4.8) Monocytes # (Auto) 1.1 x10^3/uL (0.0-1.1) Eosinophils # (Auto) 0.0 x10^3/uL (0.0-0.7) Basophils # (Auto) 0.0 x10^3/uL (0.0-0.2) Sodium Level 143 mmol/L (136-145) Potassium Level 3.8 mmol/L (3.5-5.1) Chloride Level 106 mmol/L (98-107) Carbon Dioxide Level 27 mmol/L (21-32) Anion Gap 10 (6-14) Blood Urea Nitrogen 16 mg/dL (7-20) Creatinine 0.9 mg/dL (0.6-1.0) Estimated GFR (Cockcroft-Gault) 77.8 Glucose Level 127 mg/dL (70-99) Lactic Acid Level 1.6 mmol/L (0.4-2.0) Calcium Level 9.4 mg/dL (8.5-10.1) Magnesium Level 1.9 mg/dL (1.8-2.4) Total Bilirubin 0.9 mg/dL (0.2-1.0) Direct Bilirubin 0.2 mg/dL (0.0-0.2) Aspartate Amino Transf (AST/SGOT) 32 U/L (15-37) Alanine Aminotransferase (ALT/SGPT) 27 U/L (14-59) Alkaline Phosphatase 44 U/L (46-116) Creatine Kinase 608 U/L (26-192) 380 U/L (26-192) Creatine Kinase MB (Mass) 11.0 ng/mL (0.0-3.6) 1.6 ng/mL (0.0-3.6) Creatine Kinase MB Relative Index 1.8 % (0-4) 0.4 % (0-4) Troponin I Quantitative < 0.017 ng/mL (0.000-0.055) < 0.017 ng/mL (0.000-0.055) OX-Qyy-B-Type Natriuretic Peptide 624 pg/mL (0-124) Total Protein 7.7 g/dL (6.4-8.2) Albumin 3.5 g/dL (3.4-5.0) Lipase 89 U/L (73-393) Thyroid Stimulating Hormone (TSH) 1.638 uIU/mL (0.358-3.74) Urine Collection Type U cath Urine Color Kathy Urine Clarity Clear Urine pH 5.5 Urine Specific [place] >=1.030 Urine Protein Negative mg/dL (NEG-TRACE) Urine Glucose (UA) Negative mg/dL (NEG) Urine Ketones (Stick) Negative mg/dL (NEG) Urine Blood Negative (NEG) Urine Nitrite Negative (NEG) Urine Bilirubin Small (NEG) Urine Urobilinogen Dipstick 1.0 mg/dL (0.2 mg/dL) Urine Leukocyte Esterase Negative (NEG) Urine RBC Occ /HPF (0-2) Urine WBC Occ /HPF (0-4) Urine Bacteria 0 /HPF (0-FEW) Urine Mucus Marked /LPF Vitamin B12 Level 535 pg/mL (247-911) Laboratory Tests Test 01/30/17 18:55 01/30/17 20:20 01/31/17 14:25 White Blood Count 10.9 x10^3/uL (4.0-11.0) Red Blood Count 3.89 x10^6/uL (3.50-5.40) Hemoglobin 11.5 g/dL (12.0-15.5) Hematocrit 35.3 % (36.0-47.0) Mean Corpuscular Volume 91 fL (79-100) Mean Corpuscular Hemoglobin 30 pg (25-35) Mean Corpuscular Hemoglobin Concent 33 g/dL (31-37) Red Cell Distribution Width 13.0 % (11.5-14.5) Platelet Count 187 x10^3/uL (140-400) Neutrophils (%) (Auto) 82 % (31-73) Lymphocytes (%) (Auto) 7 % (24-48) Monocytes (%) (Auto) 10 % (0-9) Eosinophils (%) (Auto) 0 % (0-3) Basophils (%) (Auto) 0 % (0-3) Neutrophils # (Auto) 9.0 x10^3uL (1.8-7.7) Lymphocytes # (Auto) 0.8 x10^3/uL (1.0-4.8) Monocytes # (Auto) 1.1 x10^3/uL (0.0-1.1) Eosinophils # (Auto) 0.0 x10^3/uL (0.0-0.7) Basophils # (Auto) 0.0 x10^3/uL (0.0-0.2) Sodium Level 143 mmol/L (136-145) Potassium Level 3.8 mmol/L (3.5-5.1) Chloride Level 106 mmol/L (98-107) Carbon Dioxide Level 27 mmol/L (21-32) Anion Gap 10 (6-14) Blood Urea Nitrogen 16 mg/dL (7-20) Creatinine 0.9 mg/dL (0.6-1.0) Estimated GFR (Cockcroft-Gault) 77.8 Glucose Level 127 mg/dL (70-99) Lactic Acid Level 1.6 mmol/L (0.4-2.0) Calcium Level 9.4 mg/dL (8.5-10.1) Magnesium Level 1.9 mg/dL (1.8-2.4) Total Bilirubin 0.9 mg/dL (0.2-1.0) Direct Bilirubin 0.2 mg/dL (0.0-0.2) Aspartate Amino Transf (AST/SGOT) 32 U/L (15-37) Alanine Aminotransferase (ALT/SGPT) 27 U/L (14-59) Alkaline Phosphatase 44 U/L (46-116) Creatine Kinase 608 U/L (26-192) 380 U/L (26-192) Creatine Kinase MB (Mass) 11.0 ng/mL (0.0-3.6) 1.6 ng/mL (0.0-3.6) Creatine Kinase MB Relative Index 1.8 % (0-4) 0.4 % (0-4) Troponin I Quantitative < 0.017 ng/mL (0.000-0.055) < 0.017 ng/mL (0.000-0.055) LH-Lwf-D-Type Natriuretic Peptide 624 pg/mL (0-124) Total Protein 7.7 g/dL (6.4-8.2) Albumin 3.5 g/dL (3.4-5.0) Lipase 89 U/L (73-393) Thyroid Stimulating Hormone (TSH) 1.638 uIU/mL (0.358-3.74) Urine Collection Type U cath Urine Color Kathy Urine Clarity Clear Urine pH 5.5 Urine Specific [place] >=1.030 Urine Protein Negative mg/dL (NEG-TRACE) Urine Glucose (UA) Negative mg/dL (NEG) Urine Ketones (Stick) Negative mg/dL (NEG) Urine Blood Negative (NEG) Urine Nitrite Negative (NEG) Urine Bilirubin Small (NEG) Urine Urobilinogen Dipstick 1.0 mg/dL (0.2 mg/dL) Urine Leukocyte Esterase Negative (NEG) Urine RBC Occ /HPF (0-2) Urine WBC Occ /HPF (0-4) Urine Bacteria 0 /HPF (0-FEW) Urine Mucus Marked /LPF Vitamin B12 Level 535 pg/mL (247-911) BARBER FELIX MD Jan 31, 2017 17:10
[2017-01-31 19:00] VITALS: BP 104/69
[2017-01-31] MEDS: MEMANTINE 10 MG TABLET. PO SCH (22:11)
[2017-01-31] MEDS: ENOXAPARIN 40 MG/0.4 ML SYRINGE. SQ SCH (22:14)
[2017-01-31 23:05] VITALS: BP 103/67
[2017-02-01 03:05] VITALS: BP 89/60
[2017-02-01 05:46] LABS: BASO % 0 % (0-3); EOS % 0 % (0-3); HEMOGLOBIN 11.1 g/dL (12.0-15.5); LYMPH # 1.2 x10^3/uL (1.0-4.8); LYMPH % 14 % (24-48); MEAN CORPUSCULAR HEMOGLOBIN 30 pg (25-35); MEAN CORPUSCULAR HGB CONC 33 g/dL (31-37); MEAN CORPUSCULAR VOLUME 91 fL (79-100); MONO % 15 % (0-9); NEUT % 71 % (31-73); PLATELET COUNT 155 x10^3/uL (140-400); RED BLOOD COUNT 3.75 x10^6/uL (3.50-5.40); RED CELL DISTRIBUTION WIDTH 12.8 % (11.5-14.5); WHITE BLOOD COUNT 8.6 x10^3/uL (4.0-11.0)
[2017-02-01 06:06] LABS: CALCIUM 8.4 mg/dL (8.5-10.1); CREATININE 0.8 mg/dL (0.6-1.0); GFR 89.1; POTASSIUM 3.8 mmol/L (3.5-5.1)
[2017-02-01 07:00] VITALS: BP 103/72
[2017-02-01] MEDS: MEMANTINE 10 MG TABLET. PO SCH ×2 (09:18→20:44)
[2017-02-01] MEDS: risperiDONE 0.25 MG TABLET. PO SCH (09:18)
[2017-02-01] MEDS: DOCUSATE SODIUM 100 MG CAPSULE. PO SCH ×2 (09:18→20:44)
[2017-02-01] MEDS: DONEPEZIL HCL 10 MG TABLET. PO SCH (09:18)
[2017-02-01] MEDS: CITALOPRAM 10 MG TABLET. PO SCH (09:18)
[2017-02-01 11:00] VITALS: BP 98/69
--- NOTE | 2017-02-01 13:27 | PDOC ---
PROGRESS NOTES Assessment Assessment Metabolic encephalopathy. Generalized weakness. Abnormal jerking movements. AD Vit D deficiency. Severe cerebral atrophy. RECOMMENDATIONS/PLAN: EEG Bit D and Calcium supplement. Treat medical disease. FU at [facility] for dementia. Discussed with her at bedside on 01/31/17. HISTORY OF THE PRESENT ILLNESS: 57-y-old female patient with Hs dementia for about 10 years. She was evaluated at [facility] and was thought as AD type of dementia and she has been followed up at [facility]. She was noted to have generalized weakness and unable to stand nor walk which she was able to do some, so she was brought to the ER of [facility]. Her HCT showed moderate to severe cerebral atrophy. PAST MEDICAL HISTORY: Please see above. PAST SURGERY HISTORY: Hysterectomy ALLERGY: Reviewed. MEDICATIONS: Refer to [facility] HISTORY: No hx of dementia. SOCIAL HISTORY: Lives with her at home. Denies smoking, drinking, and illicit drug use. REVIEW OF SYSTEMS: Constitutional: No malnutrition or cachexia. Head: No traumatic brain or head injury. Skin: No edema, or rash. Ear: No infection, tinnitus. Eyes: No vision loss or color blindness. Nose: No bleeding or purulent discharges. Hearing: No hearing decrease. Neck: No injury. Breast: No history of cancer, masses,or discharges. Cardiac: No NC, arrhythmia.. Pulmonary: No COPD. GI: No GI ulcer, GI bleeding. Urinary/genital: No dysuria, hematuria. Endocrinologic: No cousin face, craniofacial dysmorphism, polydactyly, goiter. Skeletomuscular: Generalized weakness. Neurological: see HP. Psychiatric: Denies drug use/abuse. Otherwise, not [id number] review of systems. PHYSICAL EXAMINATION: General appearance is in subacute distress. HEENT: Normocephalic and nontraumatic. Eyes, nose, ears, and throat are unremarkable. Neck is supple. No lymphadenopathy. No crepitus. Cardiovascular: S1, S2, regular rate and rhythm. Pulmonary: Clear to auscultation bilaterally. Abdomen: Bowel sounds are positive. Extremities: No rash, lesions, or edema. No restriction of range of motion NEUROLOGICAL EXAMINATION: Awake. Unable to communicate. Not oriented to time and place but may know her . PERRL. EOMI. CN: no focal findings. Muscle tone: within normal. Muscle strength: 5- DTR: 2- Plantar reflex: Neutral response bilaterally Gait: not examined in bed. Sensory exam: no acute abnormal findings. No acute cerebellar signs elicited. F-T-N test not performed due to not follow commands. Abnormal shaking and jerking movements noted. Objective Objective Vital Signs Date Time Temp Pulse Resp B/P (MAP) Pulse Ox O2 Delivery O2 Flow Rate FiO2 02/01/17 11:00 98.3 75 18 98/69 (79) 99 Room Air 98.3 Intake and Output 02/01/17 07:00 Intake Total 2850 ml Balance 2850 ml Intake Oral 480 ml IV Total 2370 ml # Voids 6 Vitals Signs Vitals VS - Last 72 Hours, by Label Date Time Temp Pulse Resp B/P (MAP) Pulse Ox O2 Delivery O2 Flow Rate FiO2 02/01/17 11:00 98.3 75 18 98/69 (79) 99 Room Air 98.3 02/01/17 08:00 Room Air 02/01/17 07:00 98.2 82 20 103/72 (82) 98 Room Air 98.2 02/01/17 03:05 99.2 84 18 89/60 (70) 98 Room Air 99.2 01/31/17 23:05 98.7 111 20 103/67 (79) 98 Room Air 98.7 01/31/17 20:00 Room Air 01/31/17 19:00 98.5 84 19 104/69 (81) 98 Room Air 98.5 01/31/17 15:00 98.6 78 17 122/76 (91) 99 Room Air 98.6 01/31/17 11:00 98.8 69 17 108/78 (88) 99 Room Air 98.8 01/31/17 08:38 Room Air 01/31/17 07:00 98.8 72 17 115/79 (91) 100 Room Air 98.8 Laboratory Laboratory Laboratory Tests Test 01/31/17 14:25 02/01/17 04:20 Creatine Kinase 380 U/L (26-192) Creatine Kinase MB (Mass) 1.6 ng/mL (0.0-3.6) Creatine Kinase MB Relative Index 0.4 % (0-4) Troponin I Quantitative < 0.017 ng/mL (0.000-0.055) Vitamin B12 Level 535 pg/mL (247-911) 25-Hydroxy Vitamin D Total 22.5 ng/mL (30.0-100.0) White Blood Count 8.6 x10^3/uL (4.0-11.0) Red Blood Count 3.75 x10^6/uL (3.50-5.40) Hemoglobin 11.1 g/dL (12.0-15.5) Hematocrit 34.0 % (36.0-47.0) Mean Corpuscular Volume 91 fL (79-100) Mean Corpuscular Hemoglobin 30 pg (25-35) Mean Corpuscular Hemoglobin Concent 33 g/dL (31-37) Red Cell Distribution Width 12.8 % (11.5-14.5) Platelet Count 155 x10^3/uL (140-400) Neutrophils (%) (Auto) 71 % (31-73) Lymphocytes (%) (Auto) 14 % (24-48) Monocytes (%) (Auto) 15 % (0-9) Eosinophils (%) (Auto) 0 % (0-3) Basophils (%) (Auto) 0 % (0-3) Neutrophils # (Auto) 6.1 x10^3uL (1.8-7.7) Lymphocytes # (Auto) 1.2 x10^3/uL (1.0-4.8) Monocytes # (Auto) 1.3 x10^3/uL (0.0-1.1) Eosinophils # (Auto) 0.0 x10^3/uL (0.0-0.7) Basophils # (Auto) 0.0 x10^3/uL (0.0-0.2) Sodium Level 145 mmol/L (136-145) Potassium Level 3.8 mmol/L (3.5-5.1) Chloride Level 109 mmol/L (98-107) Carbon Dioxide Level 28 mmol/L (21-32) Anion Gap 8 (6-14) Blood Urea Nitrogen 15 mg/dL (7-20) Creatinine 0.8 mg/dL (0.6-1.0) Estimated GFR (Cockcroft-Gault) 89.1 Glucose Level 67 mg/dL (70-99) Calcium Level 8.4 mg/dL (8.5-10.1) Medication Medications Current Medications Calcium Carbonate/ Glycine (Oscal) 500 mg TIDAFTMEAL PO ; Start 02/01/17 at 13: 00 Citalopram Hydrobromide (CeleXA) 10 mg DAILY PO Last administered on 02/01/17 09:18; Start 02/01/17 at 09:00 Donepezil HCl (Aricept) 10 mg DAILY PO Last administered on 02/01/17 09:18; Start 02/01/17 at 09:00 Enoxaparin Sodium (Lovenox 30mg Syringe) 30 mg Q24H SQ ; Start 02/01/17 at 21:00 Lorazepam (Ativan) 0.5 mg 1X ONCE IV Last administered on 01/31/17 15:43; Start 01/31/17 at 15:45; Stop 01/31/17 at 15:46; Status DC Memantine (Namenda) 10 mg BID PO Last administered on 02/01/17 09:18; Start at 21:00 Risperidone (RisperDAL) 0.25 mg DAILY PO Last administered on 02/01/17 09:18; Start 02/01/17 at 09:00 Vitamin D (Vitamin D3) 5,000 unit DAILY PO ; Start 02/01/17 at 11:00 Comment Review of Relevant I have reviewed the following items jamar (where applicable) has been applied. BARBER FELIX MD Feb 01, 2017 13:27
[2017-02-01] MEDS: CALCIUM CARBONATE 500 MG TABLET PO SCH ×2 (13:35→17:05)
[2017-02-01] MEDS: CHOLECALCIFEROL (VITAMIN D3) 5,000 UNIT CAPSULE PO SCH (13:35)
[2017-02-01] MEDS: IV 1/2 NORMAL SALINE 1,000 ML IV SCH (13:35)
[2017-02-01 15:00] VITALS: BP 88/33
--- NOTE | 2017-02-01 15:54 | PDOC ---
PROGRESS NOTES Chief Complaint Chief Complaint Chief complaint: Altered mental status Assessment and plan Encephalopathy, unclear etiology See failure advance does immerse dementia Anemia of chronic disease Physical debility Plan EEG pending Continue physical therapy and occupational therapy Advance diet as per speech recommendations Continue mild hydration Monitor labs Discussed with the at bedside Discharge plans to home once neurology clear her Appreciate physical therapy occupational therapy recommendations Labs and images reviewed History of Present Illness History of Present Illness Arousable but not alert Not oriented is at bedside Had lunch today Vitals Vitals Vital Signs Date Time Temp Pulse Resp B/P (MAP) Pulse Ox O2 Delivery O2 Flow Rate FiO2 02/01/17 11:00 98.3 75 18 98/69 (79) 99 Room Air 98.3 Physical Exam General: Alert, No acute distress, Other (mumbles, seems to have shallow R NLF) Heart: Regular rate, Normal S1, Normal S2 Lungs: Clear Abdomen: Normal bowel sounds, Soft, No tenderness Extremities: Other (cant elevate both arms - thats her baseline per hsuband - mostly from dementia) Skin: No rashes, No breakdown, No significant lesion Labs LABS Laboratory Tests Test 02/01/17 04:20 White Blood Count 8.6 x10^3/uL (4.0-11.0) Red Blood Count 3.75 x10^6/uL (3.50-5.40) Hemoglobin 11.1 g/dL (12.0-15.5) Hematocrit 34.0 % (36.0-47.0) Mean Corpuscular Volume 91 fL (79-100) Mean Corpuscular Hemoglobin 30 pg (25-35) Mean Corpuscular Hemoglobin Concent 33 g/dL (31-37) Red Cell Distribution Width 12.8 % (11.5-14.5) Platelet Count 155 x10^3/uL (140-400) Neutrophils (%) (Auto) 71 % (31-73) Lymphocytes (%) (Auto) 14 % (24-48) Monocytes (%) (Auto) 15 % (0-9) Eosinophils (%) (Auto) 0 % (0-3) Basophils (%) (Auto) 0 % (0-3) Neutrophils # (Auto) 6.1 x10^3uL (1.8-7.7) Lymphocytes # (Auto) 1.2 x10^3/uL (1.0-4.8) Monocytes # (Auto) 1.3 x10^3/uL (0.0-1.1) Eosinophils # (Auto) 0.0 x10^3/uL (0.0-0.7) Basophils # (Auto) 0.0 x10^3/uL (0.0-0.2) Sodium Level 145 mmol/L (136-145) Potassium Level 3.8 mmol/L (3.5-5.1) Chloride Level 109 mmol/L (98-107) Carbon Dioxide Level 28 mmol/L (21-32) Anion Gap 8 (6-14) Blood Urea Nitrogen 15 mg/dL (7-20) Creatinine 0.8 mg/dL (0.6-1.0) Estimated GFR (Cockcroft-Gault) 89.1 Glucose Level 67 mg/dL (70-99) Calcium Level 8.4 mg/dL (8.5-10.1) Assessment and Plan Assessmemt and Plan Problems Medical Problems: (1) Alzheimer's dementia Status: Acute (2) Change in mental status Status: Acute (3) Generalized weakness Status: Acute Problems: Comment Review of Relevant I have reviewed the following items jamar (where applicable) has been applied. Labs Laboratory Tests Test 01/30/17 18:55 01/30/17 20:20 01/31/17 14:25 02/01/17 04:20 White Blood Count 10.9 x10^3/uL (4.0-11.0) 8.6 x10^3/uL (4.0-11.0) Red Blood Count 3.89 x10^6/uL (3.50-5.40) 3.75 x10^6/uL (3.50-5.40) Hemoglobin 11.5 g/dL (12.0-15.5) 11.1 g/dL (12.0-15.5) Hematocrit 35.3 % (36.0-47.0) 34.0 % (36.0-47.0) Mean Corpuscular Volume 91 fL (79-100) 91 fL (79-100) Mean Corpuscular Hemoglobin 30 pg (25-35) 30 pg (25-35) Mean Corpuscular Hemoglobin Concent 33 g/dL (31-37) 33 g/dL (31-37) Red Cell Distribution Width 13.0 % (11.5-14.5) 12.8 % (11.5-14.5) Platelet Count 187 x10^3/uL (140-400) 155 x10^3/uL (140-400) Neutrophils (%) (Auto) 82 % (31-73) 71 % (31-73) Lymphocytes (%) (Auto) 7 % (24-48) 14 % (24-48) Monocytes (%) (Auto) 10 % (0-9) 15 % (0-9) Eosinophils (%) (Auto) 0 % (0-3) 0 % (0-3) Basophils (%) (Auto) 0 % (0-3) 0 % (0-3) Neutrophils # (Auto) 9.0 x10^3uL (1.8-7.7) 6.1 x10^3uL (1.8-7.7) Lymphocytes # (Auto) 0.8 x10^3/uL (1.0-4.8) 1.2 x10^3/uL (1.0-4.8) Monocytes # (Auto) 1.1 x10^3/uL (0.0-1.1) 1.3 x10^3/uL (0.0-1.1) Eosinophils # (Auto) 0.0 x10^3/uL (0.0-0.7) 0.0 x10^3/uL (0.0-0.7) Basophils # (Auto) 0.0 x10^3/uL (0.0-0.2) 0.0 x10^3/uL (0.0-0.2) Sodium Level 143 mmol/L (136-145) 145 mmol/L (136-145) Potassium Level 3.8 mmol/L (3.5-5.1) 3.8 mmol/L (3.5-5.1) Chloride Level 106 mmol/L (98-107) 109 mmol/L (98-107) Carbon Dioxide Level 27 mmol/L (21-32) 28 mmol/L (21-32) Anion Gap 10 (6-14) 8 (6-14) Blood Urea Nitrogen 16 mg/dL (7-20) 15 mg/dL (7-20) Creatinine 0.9 mg/dL (0.6-1.0) 0.8 mg/dL (0.6-1.0) Estimated GFR (Cockcroft-Gault) 77.8 89.1 Glucose Level 127 mg/dL (70-99) 67 mg/dL (70-99) Lactic Acid Level 1.6 mmol/L (0.4-2.0) Calcium Level 9.4 mg/dL (8.5-10.1) 8.4 mg/dL (8.5-10.1) Magnesium Level 1.9 mg/dL (1.8-2.4) Total Bilirubin 0.9 mg/dL (0.2-1.0) Direct Bilirubin 0.2 mg/dL (0.0-0.2) Aspartate Amino Transf (AST/SGOT) 32 U/L (15-37) Alanine Aminotransferase (ALT/SGPT) 27 U/L (14-59) Alkaline Phosphatase 44 U/L (46-116) Creatine Kinase 608 U/L (26-192) 380 U/L (26-192) Creatine Kinase MB (Mass) 11.0 ng/mL (0.0-3.6) 1.6 ng/mL (0.0-3.6) Creatine Kinase MB Relative Index 1.8 % (0-4) 0.4 % (0-4) Troponin I Quantitative < 0.017 ng/mL (0.000-0.055) < 0.017 ng/mL (0.000-0.055) HZ-Vkh-D-Type Natriuretic Peptide 624 pg/mL (0-124) Total Protein 7.7 g/dL (6.4-8.2) Albumin 3.5 g/dL (3.4-5.0) Lipase 89 U/L (73-393) Thyroid Stimulating Hormone (TSH) 1.638 uIU/mL (0.358-3.74) Urine Collection Type U cath Urine Color Kathy Urine Clarity Clear Urine pH 5.5 Urine Specific [place] >=1.030 Urine Protein Negative mg/dL (NEG-TRACE) Urine Glucose (UA) Negative mg/dL (NEG) Urine Ketones (Stick) Negative mg/dL (NEG) Urine Blood Negative (NEG) Urine Nitrite Negative (NEG) Urine Bilirubin Small (NEG) Urine Urobilinogen Dipstick 1.0 mg/dL (0.2 mg/dL) Urine Leukocyte Esterase Negative (NEG) Urine RBC Occ /HPF (0-2) Urine WBC Occ /HPF (0-4) Urine Bacteria 0 /HPF (0-FEW) Urine Mucus Marked /LPF Vitamin B12 Level 535 pg/mL (247-911) 25-Hydroxy Vitamin D Total 22.5 ng/mL (30.0-100.0) Laboratory Tests Test 02/01/17 04:20 White Blood Count 8.6 x10^3/uL (4.0-11.0) Red Blood Count 3.75 x10^6/uL (3.50-5.40) Hemoglobin 11.1 g/dL (12.0-15.5) Hematocrit 34.0 % (36.0-47.0) Mean Corpuscular Volume 91 fL (79-100) Mean Corpuscular Hemoglobin 30 pg (25-35) Mean Corpuscular Hemoglobin Concent 33 g/dL (31-37) Red Cell Distribution Width 12.8 % (11.5-14.5) Platelet Count 155 x10^3/uL (140-400) Neutrophils (%) (Auto) 71 % (31-73) Lymphocytes (%) (Auto) 14 % (24-48) Monocytes (%) (Auto) 15 % (0-9) Eosinophils (%) (Auto) 0 % (0-3) Basophils (%) (Auto) 0 % (0-3) Neutrophils # (Auto) 6.1 x10^3uL (1.8-7.7) Lymphocytes # (Auto) 1.2 x10^3/uL (1.0-4.8) Monocytes # (Auto) 1.3 x10^3/uL (0.0-1.1) Eosinophils # (Auto) 0.0 x10^3/uL (0.0-0.7) Basophils # (Auto) 0.0 x10^3/uL (0.0-0.2) Sodium Level 145 mmol/L (136-145) Potassium Level 3.8 mmol/L (3.5-5.1) Chloride Level 109 mmol/L (98-107) Carbon Dioxide Level 28 mmol/L (21-32) Anion Gap 8 (6-14) Blood Urea Nitrogen 15 mg/dL (7-20) Creatinine 0.8 mg/dL (0.6-1.0) Estimated GFR (Cockcroft-Gault) 89.1 Glucose Level 67 mg/dL (70-99) Calcium Level 8.4 mg/dL (8.5-10.1) Medications Current Medications Sodium Chloride 1,000 ml @ 1,000 mls/hr Q1H IV Last administered on 01/30/17 19:30; Start 01/30/17 at 18:45; Stop 01/30/17 at 19:44; Status DC Sodium Chloride (Normal Saline Flush) 10 ml QSHIFT PRN IV AFTER MEDS AND BLOOD DRAWS Last administered on 01/30/17 19:30; Start 01/30/17 at 18:45 Sodium Chloride 1,000 ml @ 75 mls/hr [id number] IV Last administered on 13:35; Start 01/30/17 at 21:15 Ondansetron HCl (Zofran) 4 mg PRN Q6HRS PRN IV NAUSEA/VOMITING; Start 01/30/17 at 21:15 Prochlorperazine Edisylate (Compazine) 10 mg PRN Q6HRS PRN IV NAUSEA/VOMITING; Start 01/30/17 at 21:15 Prochlorperazine (Compazine) 25 mg PRN Q12HR PRN [place] NAUSEA/VOMITING; Start at 21:15 Morphine Sulfate 1 mg PRN Q2HR PRN IV PAIN; Start 01/30/17 at 21:15 Oxycodone HCl (Roxicodone) 5 mg PRN Q4HRS PRN PO MILD PAIN, 1ST CHOICE; Start 01/30/17 at 21:15 Ketorolac Tromethamine (Toradol) 15 mg PRN Q6HRS PRN IV PAIN; Start 01/30/17 at 21:15; Stop 02/04/17 at 21:14 Acetaminophen (Tylenol) 650 mg PRN Q6HRS PRN PO Headaches, Temp > 101.5F; Start 01/30/17 at 21:15 Ibuprofen (Motrin) 400 mg PRN Q6HRS PRN PO MILD PAIN; Start 01/30/17 at 21:15; Stop 01/31/17 at 10:58; Status DC Docusate Sodium (Colace) 100 mg BID PO Last administered on 02/01/17 09:18; Start 01/31/17 at 09:00 Magnesium Hydroxide (Milk Of Magnesia) 2,400 mg PRN Q12HR PRN PO CONSTIPATION; Start 01/30/17 at 21:15 Bisacodyl (Dulcolax Supp) 10 mg PRN DAILY PRN [place] CONSTIPATION; Start 01/30/17 at 21:15 Enoxaparin Sodium (Lovenox 40mg Syringe) 40 mg Q24H SQ Last administered on 22:14; Start 01/30/17 at 21:30; Stop 02/01/17 at 11:15; Status DC Sodium Chloride 1,000 ml @ 100 mls/hr Q10H IV ; Start 01/30/17 at 21:15; Stop 01/31/17 at 21:14; Status DC Lorazepam (Ativan) 0.5 mg 1X ONCE IV Last administered on 01/31/17 15:43; Start 01/31/17 at 15:45; Stop 01/31/17 at 15:46; Status DC Citalopram Hydrobromide (CeleXA) 10 mg DAILY PO Last administered on 02/01/17 09:18; Start 02/01/17 at 09:00 Donepezil HCl (Aricept) 10 mg DAILY PO Last administered on 02/01/17 09:18; Start 02/01/17 at 09:00 Memantine (Namenda) 10 mg BID PO Last administered on 02/01/17 09:18; Start at 21:00 Risperidone (RisperDAL) 0.25 mg DAILY PO Last administered on 02/01/17 09:18; Start 02/01/17 at 09:00 Vitamin D (Vitamin D3) 5,000 unit DAILY PO Last administered on 02/01/17 13:35 ; Start 02/01/17 at 11:00 Calcium Carbonate/ Glycine (Oscal) 500 mg TIDAFTMEAL PO Last administered on 13:35; Start 02/01/17 at 13:00 Enoxaparin Sodium (Lovenox 30mg Syringe) 30 mg Q24H SQ ; Start 02/01/17 at 21:00 Active Scripts Active Reported Citalopram Hbr (Citalopram Hydrobromide) 10 Mg Tablet 1 Tab PO DAILY Risperidone 0.5 Mg Tablet 0.25 Mg PO DAILY Aricept (Donepezil Hcl) 10 Mg Tablet 1 Tab PO DAILY Namenda (Memantine Hcl) 10 Mg Tablet 1 Tab PO BID Vitals/I & O Vital Sign - Last 24 Hours 01/31/17 01/31/17 01/31/17 02/01/17 19:00 20:00 23:05 03:05 Temp 98.5 98.7 99.2 98.5 98.7 99.2 Pulse 84 111 84 Resp 19 20 18 B/P (MAP) 104/69 (81) 103/67 (79) 89/60 (70) Pulse Ox 98 98 98 O2 Delivery Room Air Room Air Room Air Room Air 02/01/17 02/01/17 02/01/17 07:00 08:00 11:00 Temp 98.2 98.3 98.2 98.3 Pulse 82 75 Resp 20 18 B/P (MAP) 103/72 (82) 98/69 (79) Pulse Ox 98 99 O2 Delivery Room Air Room Air Room Air Intake and Output 01/31/17 01/31/17 02/01/17 15:00 23:00 07:00 Intake Total 1370 ml 1480 ml Balance 1370 ml 1480 ml MOLLY GONZALEZ MD Feb 01, 2017 15:53
[2017-02-01 19:00] VITALS: BP 105/67
[2017-02-01] MEDS: ENOXAPARIN 30 MG/0.3 ML SYRINGE. SQ SCH (20:49)
[2017-02-01 23:00] VITALS: BP 91/64
[2017-02-02] MEDS: IV 1/2 NORMAL SALINE 1,000 ML IV SCH ×3 (02:22→23:56)
[2017-02-02 03:00] VITALS: BP 90/56
[2017-02-02 07:00] VITALS: BP 125/72
[2017-02-02] MEDS: CHOLECALCIFEROL (VITAMIN D3) 5,000 UNIT CAPSULE PO SCH (09:11)
[2017-02-02] MEDS: DONEPEZIL HCL 10 MG TABLET. PO SCH (09:11)
[2017-02-02] MEDS: CITALOPRAM 10 MG TABLET. PO SCH (09:11)
[2017-02-02] MEDS: DOCUSATE SODIUM 100 MG CAPSULE. PO SCH ×2 (09:11→22:13)
[2017-02-02] MEDS: CALCIUM CARBONATE 500 MG TABLET PO SCH ×4 (09:11→17:27)
[2017-02-02] MEDS: risperiDONE 0.25 MG TABLET. PO SCH (09:11)
[2017-02-02] MEDS: MEMANTINE 10 MG TABLET. PO SCH ×2 (09:11→22:13)
[2017-02-02 11:00] VITALS: BP 99/72
--- NOTE | 2017-02-02 11:47 | PDOC ---
PROGRESS NOTES Chief Complaint Chief Complaint Altered mental status ASSESSMENT AND PLAN: 1. Encephalopathy, unclear etiology. appreciate Dr Barreto's help w/management. EEG pending. MRI with cerebral atrophy 2. Dementia: per , pt is essentially back to baseline mentally, with grunts and eyes tracking, not following commands. his concern is decline in physical function more so that mental. 3. Physical debility: OT/PT/ST seen; SNU placement 4. Anemia of chronic disease: stable History of Present Illness History of Present Illness unable to communicate galileo to dementia Vitals Vitals Vital Signs Date Time Temp Pulse Resp B/P (MAP) Pulse Ox O2 Delivery O2 Flow Rate FiO2 02/02/17 11:00 97.7 74 18 99/72 (81) 93 Room Air 97.7 Physical Exam General: Alert, No acute distress, Other (mumbles, seems to have shallow R NLF) Heart: Regular rate, Normal S1, Normal S2 Lungs: Clear Abdomen: Normal bowel sounds, Soft, No tenderness Extremities: Other (cant elevate both arms - thats her baseline per hsuband - mostly from dementia) Skin: No rashes, No breakdown, No significant lesion KESHIA GUDINO MD Feb 02, 2017 11:47
--- NOTE | 2017-02-02 14:28 | PDOC ---
PROGRESS NOTES Assessment Assessment Metabolic encephalopathy. Generalized weakness. Abnormal jerking movements. AD Vit D deficiency. Severe cerebral atrophy. RECOMMENDATIONS/PLAN: Bit D and Calcium supplement. Treat medical disease. FU at [facility] for dementia. Discussed with her at bedside on 02/02/17. HISTORY OF THE PRESENT ILLNESS: 57-y-old female patient with Hs dementia for about 10 years. She was evaluated at [facility] and was thought as AD type of dementia and she has been followed up at [facility]. She was noted to have generalized weakness and unable to stand nor walk which she was able to do some, so she was brought to the ER of [facility]. Her HCT showed moderate to severe cerebral atrophy. PAST MEDICAL HISTORY: Please see above. PAST SURGERY HISTORY: Hysterectomy ALLERGY: Reviewed. MEDICATIONS: Refer to [facility] HISTORY: No hx of dementia. SOCIAL HISTORY: Lives with her at home. Denies smoking, drinking, and illicit drug use. REVIEW OF SYSTEMS: Constitutional: No malnutrition or cachexia. Head: No traumatic brain or head injury. Skin: No edema, or rash. Ear: No infection, tinnitus. Eyes: No vision loss or color blindness. Nose: No bleeding or purulent discharges. Hearing: No hearing decrease. Neck: No injury. Breast: No history of cancer, masses,or discharges. Cardiac: No IA, arrhythmia.. Pulmonary: No COPD. GI: No GI ulcer, GI bleeding. Urinary/genital: No dysuria, hematuria. Endocrinologic: No cousin face, craniofacial dysmorphism, polydactyly, goiter. Skeletomuscular: Generalized weakness. Neurological: see HP. Psychiatric: Denies drug use/abuse. Otherwise, not [id number] review of systems. PHYSICAL EXAMINATION: General appearance is in subacute distress. HEENT: Normocephalic and nontraumatic. Eyes, nose, ears, and throat are unremarkable. Neck is supple. No lymphadenopathy. No crepitus. Cardiovascular: S1, S2, regular rate and rhythm. Pulmonary: Clear to auscultation bilaterally. Abdomen: Bowel sounds are positive. Extremities: No rash, lesions, or edema. No restriction of range of motion NEUROLOGICAL EXAMINATION: Awake. Unable to communicate. Not oriented to time and place but may know her . PERRL. EOMI. CN: no focal findings. Muscle tone: within normal. Muscle strength: 5- DTR: 2- Plantar reflex: Neutral response bilaterally Gait: not examined in bed. Sensory exam: no acute abnormal findings. No acute cerebellar signs elicited. F-T-N test not performed due to not follow commands. Abnormal shaking and jerking movements noted. Objective Objective Vital Signs Date Time Temp Pulse Resp B/P (MAP) Pulse Ox O2 Delivery O2 Flow Rate FiO2 02/02/17 11:00 97.7 74 18 99/72 (81) 93 Room Air 97.7 Intake and Output 02/02/17 07:00 Intake Total 120 ml Balance 120 ml Intake Oral 120 ml # Voids 2 Vitals Signs Vitals VS - Last 72 Hours, by Label Date Time Temp Pulse Resp B/P (MAP) Pulse Ox O2 Delivery O2 Flow Rate FiO2 02/02/17 11:00 97.7 74 18 99/72 (81) 93 Room Air 97.7 02/02/17 07:00 98.4 65 14 125/72 (89) 97 Room Air 98.4 02/02/17 03:00 98.3 70 20 90/56 (67) 98 Room Air 98.3 02/01/17 23:00 98.9 88 17 91/64 (73) 97 Room Air 98.9 02/01/17 19:00 99.1 100 17 105/67 (80) 96 Room Air 99.1 02/01/17 15:00 98.4 74 18 88/33 (51) 98 Room Air 98.4 02/01/17 11:00 98.3 75 18 98/69 (79) 99 Room Air 98.3 02/01/17 08:00 Room Air 02/01/17 07:00 98.2 82 20 103/72 (82) 98 Room Air 98.2 Medication Medications Current Medications Enoxaparin Sodium (Lovenox 30mg Syringe) 30 mg Q24H SQ Last administered on t 20:49; Start 02/01/17 at 21:00 Comment Review of Relevant I have reviewed the following items jamar (where applicable) has been applied. BARBER FELIX MD Feb 02, 2017 14:28
[2017-02-02 15:00] VITALS: BP 104/62
[2017-02-02 19:00] VITALS: BP 98/60
--- NOTE | 2017-02-02 20:36 | EEG ---
DATE OF SERVICE: 02/01/2017 EEG NUMBER: [id number]. OBJECTIVE: This is a 57-year-old female patient with history of mental status changes and abnormal movements. EEG was requested to evaluate cerebral activity and help rule out seizure. METHODS: Sixteen electrodes were applied according to the international 10-20 electrode placement system. EKG monitoring, hyperventilation, intermittent photic stimulation, monopolar and bipolar montages are routinely utilized. The record was obtained on a digital system with video monitoring. FINDINGS: 1. Background: The patient was recorded in the awake and drowsy states. No actual sleep state was recorded. The overall background amplitude is variable. No clear posterior dominant rhythm is observed. The overall background rhythm is with diffuse slowing in theta and delta frequencies. 2. Abnormalities: Some spike controlled waves noted at T4, T6 and O2 regions. No electrographic seizure is seen. Diffuse slowing in the theta and delta frequencies throughout the entire recording and artifact also noted. 3. Activation: Hyperventilation was not performed because the patient was unable to follow the commands. Intermittent photic stimulation was performed with photic driving. No specific epileptiform discharge or electrographic seizure induced by intermittent photic stimulation. IMPRESSION: This EEG is an abnormal study for the awake and drowsy states. No actual sleep state was recorded. No clear posterior dominant rhythm is observed. The overall background rhythm is with diffuse slowing in theta and delta frequencies. There are some spike contoured waves noted at the right temporal and occipital region, however; their epileptogenicity cannot be determined in this study. No specific epileptiform discharge or electrographic seizure is seen. This pattern of EEG may suggest diffuse encephalopathy. BARBER FELIX MD DR: DENA/raven JOB#: [id number] / [id number] EVA
[2017-02-02] MEDS: ENOXAPARIN 30 MG/0.3 ML SYRINGE. SQ SCH (22:14)
[2017-02-02 23:00] VITALS: BP 116/59
[2017-02-03 07:00] VITALS: BP 133/83
[2017-02-03] MEDS: CALCIUM CARBONATE 500 MG TABLET PO SCH ×3 (09:29→18:00)
[2017-02-03] MEDS: DOCUSATE SODIUM 100 MG CAPSULE. PO SCH ×2 (09:29→20:34)
[2017-02-03] MEDS: risperiDONE 0.25 MG TABLET. PO SCH (09:29)
[2017-02-03] MEDS: CHOLECALCIFEROL (VITAMIN D3) 5,000 UNIT CAPSULE PO SCH (09:29)
[2017-02-03] MEDS: CITALOPRAM 10 MG TABLET. PO SCH (09:29)
[2017-02-03] MEDS: MEMANTINE 10 MG TABLET. PO SCH ×2 (09:30→20:34)
[2017-02-03] MEDS: DONEPEZIL HCL 10 MG TABLET. PO SCH (09:30)
--- NOTE | 2017-02-03 09:37 | PDOC ---
PROGRESS NOTES Chief Complaint Chief Complaint Altered mental status ASSESSMENT AND PLAN: 1. Encephalopathy, unclear etiology. appreciate Dr Barreto's help w/management. EEG pending. MRI with cerebral atrophy 2. Alzheimer's Dementia: per , pt is essentially back to baseline mentally, with grunts and eyes tracking, not following commands. his concern is decline in physical function more so that mental. 3. Anemia of chronic disease: stable 4. Physical debility: OT/PT/ST seen; SNU placement History of Present Illness History of Present Illness responding with head movement and smile to verbal input. not following commands. non-verbal Vitals Vitals Vital Signs Date Time Temp Pulse Resp B/P (MAP) Pulse Ox O2 Delivery O2 Flow Rate FiO2 02/03/17 07:00 99.0 56 16 133/83 (100) 92 Room Air 99.0 Physical Exam General: Alert, No acute distress, Other (mumbles, seems to have shallow R NLF) Heart: Regular rate Lungs: Clear Abdomen: Normal bowel sounds, Soft, No tenderness Skin: No rashes KESHIA GUDINO MD Feb 03, 2017 09:37
[2017-02-03 11:00] VITALS: BP 133/83
[2017-02-03] MEDS: IV 1/2 NORMAL SALINE 1,000 ML IV SCH (13:31)
[2017-02-03 14:52] VITALS: BP 100/76
--- NOTE | 2017-02-03 16:07 | PDOC ---
PROGRESS NOTES Assessment Assessment Metabolic encephalopathy. Generalized weakness. Abnormal jerking movements. AD Vit D deficiency. Severe cerebral atrophy. RECOMMENDATIONS/PLAN: Bit D and Calcium supplement. Treat medical disease. FU at [facility] for dementia. Discussed with her at bedside on 02/02/17. EEG on 02/01/17: Slowing in the theta and Delta activity. Abnormal. HISTORY OF THE PRESENT ILLNESS: 57-y-old female patient with Hs dementia for about 10 years. She was evaluated at [facility] and was thought as AD type of dementia and she has been followed up at [facility]. She was noted to have generalized weakness and unable to stand nor walk which she was able to do some, so she was brought to the ER of [facility]. Her HCT showed moderate to severe cerebral atrophy. PAST MEDICAL HISTORY: Please see above. PAST SURGERY HISTORY: Hysterectomy ALLERGY: Reviewed. MEDICATIONS: Refer to [facility] HISTORY: No hx of dementia. SOCIAL HISTORY: Lives with her at home. Denies smoking, drinking, and illicit drug use. REVIEW OF SYSTEMS: Constitutional: No malnutrition or cachexia. Head: No traumatic brain or head injury. Skin: No edema, or rash. Ear: No infection, tinnitus. Eyes: No vision loss or color blindness. Nose: No bleeding or purulent discharges. Hearing: No hearing decrease. Neck: No injury. Breast: No history of cancer, masses,or discharges. Cardiac: No [place], arrhythmia.. Pulmonary: No COPD. GI: No GI ulcer, GI bleeding. Urinary/genital: No dysuria, hematuria. Endocrinologic: No cousin face, craniofacial dysmorphism, polydactyly, goiter. Skeletomuscular: Generalized weakness. Neurological: see HP. Psychiatric: Denies drug use/abuse. Otherwise, not [id number] review of systems. PHYSICAL EXAMINATION: General appearance is in no acute distress. HEENT: Normocephalic and nontraumatic. Eyes, nose, ears, and throat are unremarkable. Neck is supple. No lymphadenopathy. No crepitus. Cardiovascular: S1, S2, regular rate and rhythm. Pulmonary: Clear to auscultation bilaterally. Abdomen: Bowel sounds are positive. Extremities: No rash, lesions, or edema. No restriction of range of motion NEUROLOGICAL EXAMINATION: Awake. Unable to communicate. Not oriented to time and place but may know her . PERRL. EOMI. CN: no focal findings. Muscle tone: within normal. Muscle strength: 5- DTR: 2- Plantar reflex: Neutral response bilaterally Gait: not examined in bed. Sensory exam: no acute abnormal findings. No acute cerebellar signs elicited. F-T-N test not performed due to not follow commands. Abnormal shaking and jerking movements noted. Objective Objective Vital Signs Date Time Temp Pulse Resp B/P (MAP) Pulse Ox O2 Delivery O2 Flow Rate FiO2 02/03/17 14:52 98.4 77 17 100/76 (84) 96 Room Air 98.4 Intake and Output 02/03/17 07:00 Intake Total 1190 ml Output Total 1 ml Balance 1189 ml Intake Oral 440 ml Other 750 ml Stool Total 1 ml # Voids 5 Vitals Signs Vitals VS - Last 72 Hours, by Label Date Time Temp Pulse Resp B/P (MAP) Pulse Ox O2 Delivery O2 Flow Rate FiO2 02/03/17 14:52 98.4 77 17 100/76 (84) 96 Room Air 98.4 02/03/17 11:00 99.0 56 16 133/83 (100) 92 Room Air 99.0 02/03/17 07:00 99.0 56 16 133/83 (100) 92 Room Air 99.0 02/02/17 23:00 99.6 97 18 116/59 (78) 97 Room Air 99.6 02/02/17 20:00 Room Air 02/02/17 19:00 99.0 87 18 98/60 (73) 96 99.0 02/02/17 15:00 97.9 88 104/62 (76) 99 Room Air 97.9 02/02/17 11:00 97.7 74 18 99/72 (81) 93 Room Air 97.7 02/02/17 07:00 98.4 65 14 125/72 (89) 97 Room Air 98.4 Comment Review of Relevant I have reviewed the following items jamar (where applicable) has been applied. BARBER FELIX MD Feb 03, 2017 16:07
[2017-02-03 19:00] VITALS: BP 105/65
[2017-02-03] MEDS: ENOXAPARIN 30 MG/0.3 ML SYRINGE. SQ SCH (20:34)
[2017-02-03 23:00] VITALS: BP 97/67
[2017-02-04] MEDS: IV 1/2 NORMAL SALINE 1,000 ML IV SCH ×2 (02:36→15:04)
[2017-02-04 07:00] VITALS: BP 112/68
[2017-02-04] MEDS: DOCUSATE SODIUM 100 MG CAPSULE. PO SCH ×2 (08:35→21:08)
[2017-02-04] MEDS: MEMANTINE 10 MG TABLET. PO SCH ×2 (08:38→21:08)
[2017-02-04] MEDS: DONEPEZIL HCL 10 MG TABLET. PO SCH (08:38)
[2017-02-04] MEDS: CHOLECALCIFEROL (VITAMIN D3) 5,000 UNIT CAPSULE PO SCH (08:38)
[2017-02-04] MEDS: CALCIUM CARBONATE 500 MG TABLET PO SCH ×3 (08:38→18:09)
[2017-02-04] MEDS: risperiDONE 0.25 MG TABLET. PO SCH (08:39)
[2017-02-04] MEDS: CITALOPRAM 10 MG TABLET. PO SCH (08:39)
[2017-02-04 10:41] VITALS: BP 95/53
--- NOTE | 2017-02-04 12:07 | PDOC ---
PROGRESS NOTES Chief Complaint Chief Complaint Altered mental status ASSESSMENT AND PLAN: 1. Encephalopathy, unclear etiology. appreciate Dr Barreto's help w/management. EEG pending. MRI with cerebral atrophy 2. Alzheimer's Dementia: per , pt is essentially back to baseline mentally, with grunts and eyes tracking, not following commands. his concern is decline in physical function more so that mental. 3. Anemia of chronic disease: stable 4. Physical debility: OT/PT/ST seen; SNU placement History of Present Illness History of Present Illness unchanged Vitals Vitals Vital Signs Date Time Temp Pulse Resp B/P (MAP) Pulse Ox O2 Delivery O2 Flow Rate FiO2 02/04/17 10:41 98.9 63 17 95/53 (67) 96 Room Air 98.9 Physical Exam General: Alert, No acute distress, Other (eyes tracking, mumbling, does not follow commands) Heart: Regular rate Lungs: Clear Abdomen: Normal bowel sounds, Soft, No tenderness Extremities: No edema Skin: No rashes KESHIA GUDINO MD Feb 04, 2017 12:07
[2017-02-04 14:34] LABS: BARBITURATES NEG (NEG); BENZODIAZEPINES NEG (NEG); CANNABINOIDS NEG (NEG); COCAINE NEG (NEG); METHADONE NEG (NEG); OPIATES NEG (NEG); PHENCYCLIDINE NEG (NEG)
--- NOTE | 2017-02-04 14:43 | PDOC ---
PROGRESS NOTES Assessment Assessment Metabolic encephalopathy. Generalized weakness. Abnormal jerking movements. AD Vit D deficiency. Severe cerebral atrophy. RECOMMENDATIONS/PLAN: Vit D and Calcium supplement. Treat medical disease. FU at [facility] for dementia. Discussed with her at bedside on 02/02/17. EEG on 02/01/17: Slowing in the theta and Delta activity. Abnormal. HISTORY OF THE PRESENT ILLNESS: 57-y-old female patient with Hs dementia for about 10 years. She was evaluated at [facility] and was thought as AD type of dementia and she has been followed up at [facility]. She was noted to have generalized weakness and unable to stand nor walk which she was able to do some, so she was brought to the ER of [facility]. Her HCT showed moderate to severe cerebral atrophy. PAST MEDICAL HISTORY: Please see above. PAST SURGERY HISTORY: Hysterectomy ALLERGY: Reviewed. MEDICATIONS: Refer to [facility] HISTORY: No hx of dementia. SOCIAL HISTORY: Lives with her at home. Denies smoking, drinking, and illicit drug use. REVIEW OF SYSTEMS: Constitutional: No malnutrition or cachexia. Head: No traumatic brain or head injury. Skin: No edema, or rash. Ear: No infection, tinnitus. Eyes: No vision loss or color blindness. Nose: No bleeding or purulent discharges. Hearing: No hearing decrease. Neck: No injury. Breast: No history of cancer, masses,or discharges. Cardiac: No [place], arrhythmia.. Pulmonary: No COPD. GI: No GI ulcer, GI bleeding. Urinary/genital: No dysuria, hematuria. Endocrinologic: No cousin face, craniofacial dysmorphism, polydactyly, goiter. Skeletomuscular: Generalized weakness. Neurological: see HP. Psychiatric: Denies drug use/abuse. Otherwise, not [id number] review of systems. PHYSICAL EXAMINATION: General appearance is in no acute distress. HEENT: Normocephalic and nontraumatic. Eyes, nose, ears, and throat are unremarkable. Neck is supple. No lymphadenopathy. No crepitus. Cardiovascular: S1, S2, regular rate and rhythm. Pulmonary: Clear to auscultation bilaterally. Abdomen: Bowel sounds are positive. Extremities: No rash, lesions, or edema. No restriction of range of motion NEUROLOGICAL EXAMINATION: Sleepiness but arousable. Unable to communicate. Not oriented to time and place but may know her . PERRL. EOMI. CN: no focal findings. Muscle tone: fluctuated but most time is with increased tone. Muscle strength: 5- DTR: 2- Plantar reflex: Neutral response bilaterally Gait: not examined in bed. Sensory exam: no acute abnormal findings. No acute cerebellar signs elicited. F-T-N test not performed due to not follow commands. Abnormal shaking and jerking movements noted. Objective Objective Vital Signs Date Time Temp Pulse Resp B/P (MAP) Pulse Ox O2 Delivery O2 Flow Rate FiO2 02/04/17 10:41 98.9 63 17 95/53 (67) 96 Room Air 98.9 Intake and Output 02/04/17 07:00 Intake Total 990 ml Output Total 3 ml Balance 987 ml Intake Oral 240 ml Other 750 ml Urine/Stool Mix 3 ml # Voids 5 Vitals Signs Vitals VS - Last 72 Hours, by Label Date Time Temp Pulse Resp B/P (MAP) Pulse Ox O2 Delivery O2 Flow Rate FiO2 02/04/17 10:41 98.9 63 17 95/53 (67) 96 Room Air 98.9 02/04/17 08:00 Room Air 02/04/17 07:00 98.1 76 16 112/68 (83) 96 Room Air 98.1 02/04/17 03:00 22 02/03/17 23:00 97.9 69 20 97/67 (77) 97 Room Air 97.9 02/03/17 19:43 Room Air 02/03/17 19:00 97.6 72 23 105/65 (78) 96 Room Air 97.6 02/03/17 14:52 98.4 77 17 100/76 (84) 96 Room Air 98.4 02/03/17 11:00 99.0 56 16 133/83 (100) 92 Room Air 99.0 02/03/17 07:00 99.0 56 16 133/83 (100) 92 Room Air 99.0 Comment Review of Relevant I have reviewed the following items jamar (where applicable) has been applied. BARBER FELIX MD Feb 04, 2017 14:43
[2017-02-04 15:00] VITALS: BP 95/63
[2017-02-04 19:00] VITALS: BP 102/61
[2017-02-04] MEDS: ENOXAPARIN 30 MG/0.3 ML SYRINGE. SQ SCH (21:08)
[2017-02-04 23:00] VITALS: BP 113/66
[2017-02-05] MEDS: IV 1/2 NORMAL SALINE 1,000 ML IV SCH ×2 (04:14→18:36)
[2017-02-05 07:00] VITALS: BP 117/82
[2017-02-05] MEDS: CALCIUM CARBONATE 500 MG TABLET PO SCH ×3 (09:34→18:20)
[2017-02-05] MEDS: MEMANTINE 10 MG TABLET. PO SCH ×2 (09:35→20:54)
[2017-02-05] MEDS: DOCUSATE SODIUM 100 MG CAPSULE. PO SCH ×2 (09:35→20:55)
[2017-02-05] MEDS: risperiDONE 0.25 MG TABLET. PO SCH (09:35)
[2017-02-05] MEDS: DONEPEZIL HCL 10 MG TABLET. PO SCH (09:35)
[2017-02-05] MEDS: CITALOPRAM 10 MG TABLET. PO SCH (09:35)
[2017-02-05] MEDS: CHOLECALCIFEROL (VITAMIN D3) 5,000 UNIT CAPSULE PO SCH (09:35)
[2017-02-05 10:35] VITALS: BP 118/58
--- NOTE | 2017-02-05 10:55 | PDOC ---
PROGRESS NOTES Assessment Problems Medical Problems: (1) Alzheimer's dementia Status: Acute (2) Change in mental status Status: Acute (3) Generalized weakness Status: Acute Metabolic encephalopathy. Generalized weakness. Myoclonus Alzheimer's disease Vit D deficiency. Plan Okay for discharge Vit D and Calcium supplement. Treat medical disease. FU at [facility] for dementia. Subjective None Objective Vital Signs Date Time Temp Pulse Resp B/P (MAP) Pulse Ox O2 Delivery O2 Flow Rate FiO2 02/05/17 10:35 97.6 63 17 118/58 (78) 96 Room Air 97.6 Intake and Output 02/05/17 07:00 Intake Total 1212 ml Balance 1212 ml Intake Oral 360 ml IV Total 852 ml # Voids 8 PHYSICAL EXAM Sleepy, arouses easily, oriented only to person and I'm not sure I understand her anyway PERRL. EOMI. CN: no focal findings. Muscle tone: normal. Muscle strength: 4/5 DTR: 2+ Plantar reflex: flexor Gait: not examined in bed. Sensory exam: no abnormal findings. No cerebellar signs elicited. No myoclonus Review of Relevant I have reviewed the following items jamar (where applicable) has been applied. Labs Laboratory Tests Test 02/04/17 13:55 Urine Opiates Screen Neg (NEG) Urine Methadone Screen Neg (NEG) Urine Barbiturates Neg (NEG) Urine Phencyclidine Screen Neg (NEG) Urine Amphetamine/Methamphetamine Neg (NEG) Urine Benzodiazepines Screen Neg (NEG) Urine Cocaine Screen Neg (NEG) Urine Cannabinoids Screen Neg (NEG) Urine Ethyl Alcohol Neg (NEG) Laboratory Tests Test 02/04/17 13:55 Urine Opiates Screen Neg (NEG) Urine Methadone Screen Neg (NEG) Urine Barbiturates Neg (NEG) Urine Phencyclidine Screen Neg (NEG) Urine Amphetamine/Methamphetamine Neg (NEG) Urine Benzodiazepines Screen Neg (NEG) Urine Cocaine Screen Neg (NEG) Urine Cannabinoids Screen Neg (NEG) Urine Ethyl Alcohol Neg (NEG) Medications Current Medications Sodium Chloride 1,000 ml @ 1,000 mls/hr Q1H IV Last administered on 01/30/17 19:30; Start 01/30/17 at 18:45; Stop 01/30/17 at 19:44; Status DC Sodium Chloride (Normal Saline Flush) 10 ml QSHIFT PRN IV AFTER MEDS AND BLOOD DRAWS Last administered on 01/30/17 19:30; Start 01/30/17 at 18:45 Sodium Chloride 1,000 ml @ 75 mls/hr [id number] IV Last administered on 04:14; Start 01/30/17 at 21:15 Ondansetron HCl (Zofran) 4 mg PRN Q6HRS PRN IV NAUSEA/VOMITING, 1st choice; Start 01/30/17 at 21:15 Prochlorperazine Edisylate (Compazine) 10 mg PRN Q6HRS PRN IV NAUSEA/VOMITING, 2nd choice; Start 01/30/17 at 21:15 Prochlorperazine (Compazine) 25 mg PRN Q12HR PRN [place] NAUSEA/VOMITING; Start at 21:15 Morphine Sulfate 1 mg PRN Q2HR PRN IV PAIN; Start 01/30/17 at 21:15 Oxycodone HCl (Roxicodone) 5 mg PRN Q4HRS PRN PO MILD PAIN, 1ST CHOICE; Start 01/30/17 at 21:15 Ketorolac Tromethamine (Toradol) 15 mg PRN Q6HRS PRN IV PAIN; Start 01/30/17 at 21:15; Stop 02/04/17 at 21:14; Status DC Acetaminophen (Tylenol) 650 mg PRN Q6HRS PRN PO Headaches, Temp > 101.5F; Start 01/30/17 at 21:15 Ibuprofen (Motrin) 400 mg PRN Q6HRS PRN PO MILD PAIN; Start 01/30/17 at 21:15; Stop 01/31/17 at 10:58; Status DC Docusate Sodium (Colace) 100 mg BID PO Last administered on 02/05/17 09:35; Start 01/31/17 at 09:00 Magnesium Hydroxide (Milk Of Magnesia) 2,400 mg PRN Q12HR PRN PO CONSTIPATION; Start 01/30/17 at 21:15 Bisacodyl (Dulcolax Supp) 10 mg PRN DAILY PRN [place] CONSTIPATION; Start 01/30/17 at 21:15 Enoxaparin Sodium (Lovenox 40mg Syringe) 40 mg Q24H SQ Last administered on 22:14; Start 01/30/17 at 21:30; Stop 02/01/17 at 11:15; Status DC Sodium Chloride 1,000 ml @ 100 mls/hr Q10H IV ; Start 01/30/17 at 21:15; Stop 01/31/17 at 21:14; Status DC Lorazepam (Ativan) 0.5 mg 1X ONCE IV Last administered on 01/31/17 15:43; Start 01/31/17 at 15:45; Stop 01/31/17 at 15:46; Status DC Citalopram Hydrobromide (CeleXA) 10 mg DAILY PO Last administered on 02/05/17 09:35; Start 02/01/17 at 09:00 Donepezil HCl (Aricept) 10 mg DAILY PO Last administered on 02/05/17 09:35; Start 02/01/17 at 09:00 Memantine (Namenda) 10 mg BID PO Last administered on 02/05/17 09:35; Start at 21:00 Risperidone (RisperDAL) 0.25 mg DAILY PO Last administered on 02/05/17 09:35; Start 02/01/17 at 09:00 Vitamin D (Vitamin D3) 5,000 unit DAILY PO Last administered on 02/05/17 09:35 ; Start 02/01/17 at 11:00 Calcium Carbonate/ Glycine (Oscal) 500 mg TIDAFTMEAL PO Last administered on 09:34; Start 02/01/17 at 13:00 Enoxaparin Sodium (Lovenox 30mg Syringe) 30 mg Q24H SQ Last administered on 21:08; Start 02/01/17 at 21:00 Active Scripts Active Reported Citalopram Hbr (Citalopram Hydrobromide) 10 Mg Tablet 1 Tab PO DAILY Risperidone 0.5 Mg Tablet 0.25 Mg PO DAILY Aricept (Donepezil Hcl) 10 Mg Tablet 1 Tab PO DAILY Namenda (Memantine Hcl) 10 Mg Tablet 1 Tab PO BID Vitals/I & O Vital Sign - Last 24 Hours 02/04/17 02/04/17 02/04/17 02/04/17 15:00 19:00 21:05 23:00 Temp 98.2 98.2 98.2 98.2 98.2 98.2 Pulse 74 59 64 Resp 16 21 22 B/P (MAP) 95/63 (74) 102/61 (75) 113/66 (82) Pulse Ox 96 96 94 O2 Delivery Room Air Room Air Room Air Room Air 02/05/17 02/05/17 02/05/17 03:27 07:00 10:35 Temp 97.4 97.6 97.4 97.6 Pulse 54 63 Resp 16 17 B/P (MAP) 117/82 (94) 118/58 (78) Pulse Ox 96 96 O2 Delivery Room Air Room Air Intake and Output 02/04/17 02/04/17 02/05/17 15:00 23:00 07:00 Intake Total 360 ml 852 ml Balance 360 ml 852 ml UMANG RIVERA MD Feb 05, 2017 10:55
[2017-02-05 14:42] VITALS: BP 99/62
[2017-02-05] MEDS ORDERED: DOCU-109 PO (14:49)
[2017-02-05] MEDS ORDERED: ACET325T9 PO (14:49)
--- NOTE | 2017-02-05 16:35 | PDOC ---
PROGRESS NOTES Chief Complaint Chief Complaint Altered mental status ASSESSMENT AND PLAN: 1. Encephalopathy, unclear etiology. appreciate Dr Barreto's help w/management. EEG pending. MRI with cerebral atrophy 2. Alzheimer's Dementia: per , pt is essentially back to baseline mentally, with grunts and eyes tracking, not following commands. his concern is decline in physical function more so that mental. 3. Anemia of chronic disease: stable 4. Physical debility: OT/PT/ST seen; SNU placement; awaiting bed D/w sister -in-law at bedside. Prognosis: poor History of Present Illness History of Present Illness unchanged Vitals Vitals Vital Signs Date Time Temp Pulse Resp B/P (MAP) Pulse Ox O2 Delivery O2 Flow Rate FiO2 02/05/17 14:42 97.7 67 16 99/62 (74) 96 Room Air 97.7 Physical Exam General: Alert, No acute distress, Other (eyes tracking, mumbling, does not follow commands) Heart: Regular rate Lungs: Clear Abdomen: Normal bowel sounds, Soft, No tenderness Extremities: No edema Skin: No rashes KESHIA GUDINO MD Feb 05, 2017 16:35
[2017-02-05 19:00] VITALS: BP 98/61
[2017-02-05] MEDS: ENOXAPARIN 30 MG/0.3 ML SYRINGE. SQ SCH (20:54)
[2017-02-05 23:00] VITALS: BP 102/71
[2017-02-06] MEDS: IV 1/2 NORMAL SALINE 1,000 ML IV SCH ×2 (05:03→18:35)
[2017-02-06 07:00] VITALS: BP 129/73
[2017-02-06] MEDS: DOCUSATE SODIUM 100 MG CAPSULE. PO SCH ×2 (09:33→21:03)
[2017-02-06] MEDS: DONEPEZIL HCL 10 MG TABLET. PO SCH (09:33)
[2017-02-06] MEDS: CALCIUM CARBONATE 500 MG TABLET PO SCH ×3 (09:33→18:00)
[2017-02-06] MEDS: risperiDONE 0.25 MG TABLET. PO SCH (09:33)
[2017-02-06] MEDS: CHOLECALCIFEROL (VITAMIN D3) 5,000 UNIT CAPSULE PO SCH (09:33)
[2017-02-06] MEDS: CITALOPRAM 10 MG TABLET. PO SCH (09:33)
[2017-02-06] MEDS: MEMANTINE 10 MG TABLET. PO SCH ×2 (09:33→21:03)
[2017-02-06 11:18] VITALS: BP 103/46
--- NOTE | 2017-02-06 11:35 | PDOC ---
PROGRESS NOTES Assessment Problems Medical Problems: (1) Alzheimer's dementia Status: Acute (2) Change in mental status Status: Acute (3) Generalized weakness Status: Acute Metabolic encephalopathy. Generalized weakness. Myoclonus Alzheimer's disease Vit D deficiency. Plan Okay for discharge Followup at [facility] Subjective None Objective Vital Signs Date Time Temp Pulse Resp B/P (MAP) Pulse Ox O2 Delivery O2 Flow Rate FiO2 02/06/17 11:18 98.6 77 16 103/46 (65) 95 Room Air 98.6 Intake and Output 02/06/17 07:00 Intake Total 1230 ml Balance 1230 ml Intake Oral 480 ml Other 750 ml # Voids 9 PHYSICAL EXAM Alert, oriented only to person, dysarthric speech PERRL. EOMI. CN: no focal findings. Muscle tone: normal. Muscle strength: 4/5 DTR: 2+ Plantar reflex: flexor Gait: not examined in bed. Sensory exam: no abnormal findings. No cerebellar signs elicited. A few beats of myoclonus noted Review of Relevant I have reviewed the following items jamar (where applicable) has been applied. Labs Laboratory Tests Test 02/04/17 13:55 Urine Opiates Screen Neg (NEG) Urine Methadone Screen Neg (NEG) Urine Barbiturates Neg (NEG) Urine Phencyclidine Screen Neg (NEG) Urine Amphetamine/Methamphetamine Neg (NEG) Urine Benzodiazepines Screen Neg (NEG) Urine Cocaine Screen Neg (NEG) Urine Cannabinoids Screen Neg (NEG) Urine Ethyl Alcohol Neg (NEG) Medications Current Medications Sodium Chloride 1,000 ml @ 1,000 mls/hr Q1H IV Last administered on 01/30/17 19:30; Start 01/30/17 at 18:45; Stop 01/30/17 at 19:44; Status DC Sodium Chloride (Normal Saline Flush) 10 ml QSHIFT PRN IV AFTER MEDS AND BLOOD DRAWS Last administered on 01/30/17 19:30; Start 01/30/17 at 18:45 Sodium Chloride 1,000 ml @ 75 mls/hr [id number] IV Last administered on 05:03; Start 01/30/17 at 21:15 Ondansetron HCl (Zofran) 4 mg PRN Q6HRS PRN IV NAUSEA/VOMITING, 1st choice; Start 01/30/17 at 21:15 Prochlorperazine Edisylate (Compazine) 10 mg PRN Q6HRS PRN IV NAUSEA/VOMITING, 2nd choice; Start 01/30/17 at 21:15 Prochlorperazine (Compazine) 25 mg PRN Q12HR PRN [place] NAUSEA/VOMITING; Start at 21:15 Morphine Sulfate 1 mg PRN Q2HR PRN IV PAIN; Start 01/30/17 at 21:15 Oxycodone HCl (Roxicodone) 5 mg PRN Q4HRS PRN PO MILD PAIN, 1ST CHOICE Last administered on 02/06/17 09:34; Start 01/30/17 at 21:15 Ketorolac Tromethamine (Toradol) 15 mg PRN Q6HRS PRN IV PAIN; Start 01/30/17 at 21:15; Stop 02/04/17 at 21:14; Status DC Acetaminophen (Tylenol) 650 mg PRN Q6HRS PRN PO Headaches, Temp > 101.5F; Start 01/30/17 at 21:15 Ibuprofen (Motrin) 400 mg PRN Q6HRS PRN PO MILD PAIN; Start 01/30/17 at 21:15; Stop 01/31/17 at 10:58; Status DC Docusate Sodium (Colace) 100 mg BID PO Last administered on 02/06/17 09:33; Start 01/31/17 at 09:00 Magnesium Hydroxide (Milk Of Magnesia) 2,400 mg PRN Q12HR PRN PO CONSTIPATION; Start 01/30/17 at 21:15 Bisacodyl (Dulcolax Supp) 10 mg PRN DAILY PRN [place] CONSTIPATION; Start 01/30/17 at 21:15 Enoxaparin Sodium (Lovenox 40mg Syringe) 40 mg Q24H SQ Last administered on 22:14; Start 01/30/17 at 21:30; Stop 02/01/17 at 11:15; Status DC Sodium Chloride 1,000 ml @ 100 mls/hr Q10H IV ; Start 01/30/17 at 21:15; Stop 01/31/17 at 21:14; Status DC Lorazepam (Ativan) 0.5 mg 1X ONCE IV Last administered on 01/31/17 15:43; Start 01/31/17 at 15:45; Stop 01/31/17 at 15:46; Status DC Citalopram Hydrobromide (CeleXA) 10 mg DAILY PO Last administered on 02/06/17 09:33; Start 02/01/17 at 09:00 Donepezil HCl (Aricept) 10 mg DAILY PO Last administered on 02/06/17 09:33; Start 02/01/17 at 09:00 Memantine (Namenda) 10 mg BID PO Last administered on 02/06/17 09:33; Start at 21:00 Risperidone (RisperDAL) 0.25 mg DAILY PO Last administered on 02/06/17 09:33; Start 02/01/17 at 09:00 Vitamin D (Vitamin D3) 5,000 unit DAILY PO Last administered on 02/06/17 09:33 ; Start 02/01/17 at 11:00 Calcium Carbonate/ Glycine (Oscal) 500 mg TIDAFTMEAL PO Last administered on 09:33; Start 02/01/17 at 13:00 Enoxaparin Sodium (Lovenox 30mg Syringe) 30 mg Q24H SQ Last administered on 20:54; Start 02/01/17 at 21:00 Active Scripts Active Reported Citalopram Hbr (Citalopram Hydrobromide) 10 Mg Tablet 1 Tab PO DAILY Risperidone 0.5 Mg Tablet 0.25 Mg PO DAILY Aricept (Donepezil Hcl) 10 Mg Tablet 1 Tab PO DAILY Namenda (Memantine Hcl) 10 Mg Tablet 1 Tab PO BID Vitals/I & O Vital Sign - Last 24 Hours 02/05/17 02/05/17 02/05/17 02/05/17 14:42 19:00 20:00 23:00 Temp 97.7 100.9 99.7 97.7 100.9 99.7 Pulse 67 88 77 Resp 16 18 20 B/P (MAP) 99/62 (74) 98/61 (73) 102/71 (81) Pulse Ox 96 95 94 O2 Delivery Room Air Room Air Room Air Room Air 02/06/17 02/06/17 07:00 11:18 Temp 97.9 98.6 97.9 98.6 Pulse 57 77 Resp 17 16 B/P (MAP) 129/73 (91) 103/46 (65) Pulse Ox 96 95 O2 Delivery Room Air Room Air Intake and Output 02/05/17 02/05/17 02/06/17 15:00 23:00 07:00 Intake Total 240 ml 240 ml 750 ml Balance 240 ml 240 ml 750 ml UMANG RIVERA MD Feb 06, 2017 11:35
--- NOTE | 2017-02-06 12:57 | PDOC ---
PROGRESS NOTES Chief Complaint Chief Complaint Altered mental status ASSESSMENT AND PLAN: 1. Encephalopathy, unclear etiology. appreciate Dr Barreto's help w/management. EEG pending. MRI with cerebral atrophy 2. Alzheimer's Dementia: per , pt is essentially back to baseline mentally, with grunts and eyes tracking, not following commands. his concern is decline in physical function more so that mental. 3. Anemia of chronic disease: stable 4. Physical debility: OT/PT/ST seen; SNU placement? vs home History of Present Illness History of Present Illness unchanged Vitals Vitals Vital Signs Date Time Temp Pulse Resp B/P (MAP) Pulse Ox O2 Delivery O2 Flow Rate FiO2 02/06/17 11:18 98.6 77 16 103/46 (65) 95 Room Air 98.6 Physical Exam General: Alert, No acute distress, Other (eyes tracking, mumbling, does not follow commands) Heart: Regular rate Lungs: Clear Abdomen: Normal bowel sounds, Soft, No tenderness Extremities: No edema Skin: No rashes KESHIA GUDINO MD Feb 06, 2017 12:57
[2017-02-06 14:47] VITALS: BP 110/60
[2017-02-06 19:00] VITALS: BP 92/59
[2017-02-06] MEDS: ENOXAPARIN 30 MG/0.3 ML SYRINGE. SQ SCH (21:03)
[2017-02-06 23:00] VITALS: BP 95/43
[2017-02-07 07:00] VITALS: BP 98/60
[2017-02-07] MEDS: IV 1/2 NORMAL SALINE 1,000 ML IV SCH (07:35)
[2017-02-07] MEDS: DOCUSATE SODIUM 100 MG CAPSULE. PO SCH (10:03)
[2017-02-07] MEDS: CALCIUM CARBONATE 500 MG TABLET PO SCH ×2 (10:04→14:02)
[2017-02-07] MEDS: MEMANTINE 10 MG TABLET. PO SCH (10:04)
[2017-02-07] MEDS: DONEPEZIL HCL 10 MG TABLET. PO SCH (10:04)
[2017-02-07] MEDS: CHOLECALCIFEROL (VITAMIN D3) 5,000 UNIT CAPSULE PO SCH (10:04)
[2017-02-07] MEDS: CITALOPRAM 10 MG TABLET. PO SCH (10:04)
[2017-02-07] MEDS: risperiDONE 0.25 MG TABLET. PO SCH (10:04)
[2017-02-07 11:00] VITALS: BP 104/62
--- NOTE | 2017-02-07 13:25 | PDOC ---
PROGRESS NOTES Assessment Problems Medical Problems: (1) Alzheimer's dementia Status: Acute (2) Change in mental status Status: Acute (3) Generalized weakness Status: Acute Metabolic encephalopathy. Generalized weakness. 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 Plan Okay for discharge, note nursing home denied, patient will be going home with home health Vit D and Calcium supplement. Treat medical disease. FU at [facility] for dementia. Subjective None Objective Vital Signs Date Time Temp Pulse Resp B/P (MAP) Pulse Ox O2 Delivery O2 Flow Rate FiO2 02/07/17 11:00 97.4 66 22 104/62 (76) 98 Room Air 97.4 Intake and Output 02/07/17 07:00 Intake Total 840 ml Balance 840 ml Intake Oral 840 ml # Voids 10 # Bowel Movements 1 PHYSICAL EXAM Sleepy, arouses easily, oriented only to person PERRL. EOMI. CN: no focal findings. Muscle tone: normal. Muscle strength: 4/5 DTR: 2+ Plantar reflex: flexor Gait: not examined in bed. Sensory exam: no abnormal findings. No cerebellar signs elicited. No myoclonus Review of Relevant I have reviewed the following items jamar (where applicable) has been applied. Medications Current Medications Sodium Chloride 1,000 ml @ 1,000 mls/hr Q1H IV Last administered on 01/30/17 19:30; Start 01/30/17 at 18:45; Stop 01/30/17 at 19:44; Status DC Sodium Chloride (Normal Saline Flush) 10 ml QSHIFT PRN IV AFTER MEDS AND BLOOD DRAWS Last administered on 01/30/17 19:30; Start 01/30/17 at 18:45 Sodium Chloride 1,000 ml @ 75 mls/hr [id number] IV Last administered on 07:35; Start 01/30/17 at 21:15 Ondansetron HCl (Zofran) 4 mg PRN Q6HRS PRN IV NAUSEA/VOMITING, 1st choice; Start 01/30/17 at 21:15 Prochlorperazine Edisylate (Compazine) 10 mg PRN Q6HRS PRN IV NAUSEA/VOMITING, 2nd choice; Start 01/30/17 at 21:15 Prochlorperazine (Compazine) 25 mg PRN Q12HR PRN RI NAUSEA/VOMITING; Start at 21:15 Morphine Sulfate 1 mg PRN Q2HR PRN IV PAIN; Start 01/30/17 at 21:15 Oxycodone HCl (Roxicodone) 5 mg PRN Q4HRS PRN PO MILD PAIN, 1ST CHOICE Last administered on 02/06/17 09:34; Start 01/30/17 at 21:15 Ketorolac Tromethamine (Toradol) 15 mg PRN Q6HRS PRN IV PAIN; Start 01/30/17 at 21:15; Stop 02/04/17 at 21:14; Status DC Acetaminophen (Tylenol) 650 mg PRN Q6HRS PRN PO Headaches, Temp > 101.5F; Start 01/30/17 at 21:15 Ibuprofen (Motrin) 400 mg PRN Q6HRS PRN PO MILD PAIN; Start 01/30/17 at 21:15; Stop 01/31/17 at 10:58; Status DC Docusate Sodium (Colace) 100 mg BID PO Last administered on 02/07/17 10:03; Start 01/31/17 at 09:00 Magnesium Hydroxide (Milk Of Magnesia) 2,400 mg PRN Q12HR PRN PO CONSTIPATION; Start 01/30/17 at 21:15 Bisacodyl (Dulcolax Supp) 10 mg PRN DAILY PRN RI CONSTIPATION; Start 01/30/17 at 21:15 Enoxaparin Sodium (Lovenox 40mg Syringe) 40 mg Q24H SQ Last administered on 22:14; Start 01/30/17 at 21:30; Stop 02/01/17 at 11:15; Status DC Sodium Chloride 1,000 ml @ 100 mls/hr Q10H IV ; Start 01/30/17 at 21:15; Stop 01/31/17 at 21:14; Status DC Lorazepam (Ativan) 0.5 mg 1X ONCE IV Last administered on 01/31/17 15:43; Start 01/31/17 at 15:45; Stop 01/31/17 at 15:46; Status DC Citalopram Hydrobromide (CeleXA) 10 mg DAILY PO Last administered on 02/07/17 10:04; Start 02/01/17 at 09:00 Donepezil HCl (Aricept) 10 mg DAILY PO Last administered on 02/07/17 10:04; Start 02/01/17 at 09:00 Memantine (Namenda) 10 mg BID PO Last administered on 02/07/17 10:04; Start at 21:00 Risperidone (RisperDAL) 0.25 mg DAILY PO Last administered on 02/07/17 10:04; Start 02/01/17 at 09:00 Vitamin D (Vitamin D3) 5,000 unit DAILY PO Last administered on 02/07/17 10:04 ; Start 02/01/17 at 11:00 Calcium Carbonate/ Glycine (Oscal) 500 mg TIDAFTMEAL PO Last administered on 10:04; Start 02/01/17 at 13:00 Enoxaparin Sodium (Lovenox 30mg Syringe) 30 mg Q24H SQ Last administered on 21:03; Start 02/01/17 at 21:00 Active Scripts Active Reported Citalopram Hbr (Citalopram Hydrobromide) 10 Mg Tablet 1 Tab PO DAILY Risperidone 0.5 Mg Tablet 0.25 Mg PO DAILY Aricept (Donepezil Hcl) 10 Mg Tablet 1 Tab PO DAILY Namenda (Memantine Hcl) 10 Mg Tablet 1 Tab PO BID Vitals/I & O Vital Sign - Last 24 Hours 02/06/17 02/06/17 02/06/17 02/07/17 14:47 19:00 23:00 07:00 Temp 98.1 99.4 98.9 97.0 98.1 99.4 98.9 97.0 Pulse 80 90 69 72 Resp 16 18 18 20 B/P (MAP) 110/60 (77) 92/59 (70) 95/43 (60) 98/60 (73) Pulse Ox 95 95 97 98 O2 Delivery Room Air Room Air Room Air Room Air 02/07/17 02/07/17 07:49 11:00 Temp 97.4 97.4 Pulse 66 Resp 22 B/P (MAP) 104/62 (76) Pulse Ox 98 O2 Delivery Room Air Room Air Intake and Output 02/06/17 02/06/17 02/07/17 15:00 23:00 07:00 Intake Total 360 ml 360 ml 120 ml Balance 360 ml 360 ml 120 ml UMANG RIVERA MD Feb 07, 2017 13:25
[2017-02-07 15:00] VITALS: BP 100/59
--- NOTE | 2017-02-08 00:29 | DS ---
DATE OF DISCHARGE: 02/07/2017 CHIEF COMPLAINT: Altered mental status, dementia. HOSPITAL COURSE: The patient is a 57-year-old -[place] woman with premature Alzheimer's dementia, who was brought in by her because of perceived acute mental status changes and decreased physical activity. The patient was admitted for further workup. Labs and x-rays did not reveal any significant finding. Neurology was involved as well and this was felt to be progression of Alzheimer's. Although requested physical therapy for her, this is somewhat difficult in a patient, who does not follow command, and the therefore was willing to take the patient back home rather than admitting her to a long-term care facility. PHYSICAL EXAMINATION: VITAL SIGNS: Show a blood pressure of 104/62, heart rate at 66, and respiratory rate at 22. GENERAL: She was sitting in a chair, mumbling, not responding verbally or by body movement. LUNGS: Clear. HEART: Regular rate and rhythm. ABDOMEN: Has positive bowel sounds, soft, and nontender. EXTREMITIES: Show no edema. DISCHARGE DATE: 02/07/2017. DISPOSITION: To home with home health. DISCHARGE CONDITION: Stable. DISCHARGE MEDICATIONS: Please refer to MAR. DISCHARGE INSTRUCTIONS: The patient will follow up with her PCP as indicated. KESHIA GUDINO MD DR: JOEL/nts JOB#: [id number] / [id number] ZAN Gonzales MD
== END 2017-02-07 15:45 | disposition home health service (06) | DRG 56 ==
LOC: ER 18:23 → 2 NORTH 21:10 → 5 SOUTH 02-01 08:45
PROVIDERS: ADMIT Internal Medicine; ATTEND Internal Medicine
DX: G30.9 Alzheimer's disease, unspecified (principal); G93.41 Metabolic encephalopathy; M62.82 Rhabdomyolysis; E44.0 Moderate protein-calorie malnutrition; Z68.1 Body mass index [BMI] 19.9 or less, adult; G31.9 Degenerative disease of nervous system, unspecified; F02.80 Dementia in other diseases classified elsewhere, unspecified severity, without behavioral disturbance, psychotic disturbance, mood disturbance, and anxiety; I10 Essential (primary) hypertension; R62.7 Adult failure to thrive; G25.3 Myoclonus; E55.9 Vitamin D deficiency, unspecified; E03.9 Hypothyroidism, unspecified; D63.8 Anemia in other chronic diseases classified elsewhere; Z79.899 Other long term (current) drug therapy; Z90.710 Acquired absence of both cervix and uterus; Z74.01 Bed confinement status
CPT/HCPCS: 36415; 43752; 70450; 71010; 80048; 80076; 81001; 82306; 82553; 82607; 83605; 83690; 83735; 83880; 84443; 84484; 85027; 93005; 95816; 96361; 96372; 96374; C1887; G0481; J1650; J2060; J7030; 92610; 97110; 97530; 97535; 99285-25